=== PATIENT | female | born 1985 | race African-American/Black ===

== ENCOUNTER 2021-05-14 16:30 | Emergency (ER) | payer OTHER, SELFPAY ==
[2021-05-14 16:58] VITALS: BP 102/67; BP 117/79; PULSE 53; PULSE 75; RESP 16; TEMP 36.7; O2SAT 98; O2SAT 99; BMI 40.2
--- NOTE | 2021-05-14 17:02 | ED.WOUNDLAC ---
HPI - Wound/Laceration General Chief Complaint: Skin/Abscess/Foreign Body Stated Complaint: r arm infection Time Seen by Provider: 05/14/21 16:52 Source: patient and EMS Mode of arrival: EMS Limitations: no limitations History of Present Illness HPI narrative: 35-year-old female with history of IVDA presenting to the ER with painful abscess on her right forearm for the last 1 week She reports the last time she injected drugs was 2 weeks ago. She has been on methadone has been injecting cocaine. She reports 1 week ago she started to getting to red tender bumps on her right forearm that has been getting worse over the last 7 days. She tried to drain the pus at home it was too painful. She denies any fever chills. No nausea or vomiting. She has a history of multiple abscesses requiring incision and drainage, and she was voiding coming to the hospital because she was afraid. Onset (ago): week(s) (1) Extremity Location: right: forearm Place: home Patient tetanus UTD: Yes Context: accidental Associated symptoms: pain Related Data Home Medications Medication Instructions Recorded Confirmed hydroxyzine HCl 25 mg tablet 25 mg PO BEDTIME 06/13/20 10/10/20 lisinopril 20 mg tablet 20 mg PO DAILY 06/13/20 10/10/20 vitamin B complex 1 cap PO DAILY 06/13/20 10/10/20 Previous Rx's Medication Instructions Recorded escitalopram oxalate 20 mg tablet 20 mg PO DAILY #90 tab 09/07/20 quetiapine 100 mg tablet 100 mg PO BEDTIME #90 tab 09/27/20 amoxicillin 875 mg-potassium 1 tab PO BID 10 Days #20 tab 10/10/20 clavulanate 125 mg tablet (Augmentin) gabapentin 600 mg tablet 600 mg PO BID #120 tab 02/22/21 trazodone 100 mg tablet 100 mg PO BEDTIME PRN 90 Days #90 02/22/21 tab cyanocobalamin (vitamin B-12) 1,000 mcg PO DAILY 90 Days #90 cap 04/17/21 1,000 mcg capsule levothyroxine 25 mcg tablet 25 mcg PO DAILY 90 Days #90 tab 04/17/21 omeprazole 20 mg capsule,delayed 20 mg PO DAILY 90 Days #90 cap 04/17/21 release cephalexin 500 mg capsule 500 mg PO Q6H #28 cap 05/14/21 doxycycline monohydrate 100 mg 100 mg PO BID #14 cap 05/14/21 capsule Allergies Allergy/AdvReac Type Severity Reaction Status Date / Time ibuprofen [Advil] AdvReac Unknown rash Verified 06/11/20 10:13 Review of Systems Review of Systems: Constitutional: No Fever, No Chills Cardiovascular: No Chest Pain, No SOB Gastrointestinal: No Nausea, No Vomiting, No Diarrhea, No abdominal Pain Musculoskeletal: No joint pain, No Myalgias Skin: + Skin Lesions, No rash Neuro: No Weakness, No Numbness, No Dizziness, No Headache Psych: + Anxiety/Panic, No Depression Heme/Lymph: No Bruising, No Lymphadenopathy PMFSH Past Medical History Medical History Anxiety Facial abscess Hypertension Hypothyroidism Right facial swelling Surgical History History of section History of cholecystectomy History of toe surgery History of tubal ligation Family History Family History Father Depression Mother Asthma Family/Other FH: mental illness Brother Alive and well Social History Social History Alcohol intake: never Advance Directives: No Advance Directives Information Provided: No Patient : No Physical Exam Vital Signs: Vital Signs: Last Vital Signs Temp 98.0 F 05/14/21 16:58 Pulse 53 05/14/21 16:58 Resp 16 05/14/21 16:58 BP 117/79 05/14/21 16:58 Pulse Ox 98 05/14/21 16:58 Body Mass Index 40.2 Appearance: Alert. Oriented X3. No acute distress. HEENT: normal inspection CVS: Normal heart rate and rhythm. Pulses normal. Respiratory: No respiratory distress. Skin: Skin warm and dry. Normal skin color. Normal skin turgor. No rashes. Extremities: Right dorsal forearm with moderate size lesion with central fluctuance, erythema, warmth and induration. Slightly proximal to this there is a healing abscess with crusting. Lesion is flat. Nonfluctuant. Multiple old track gonsalez seen on the bilateral forearms. Bilateral forearm compartments are soft compressible. 2+ radial pulses bilaterally neurovascularly intact distally. Neuro: Oriented X 3. No motor deficit. No sensory deficit. Course Course Course Narrative: 35-year-old female with history of IVDA presenting to the ER with painful abscess on her right forearm for the last 1 week she is nontoxic appearing and afebrile on arrival. Exam is consistent with a abscess associated with IVDA with surrounding cellulitis. Area amenable to I&D, patient is agreeable. Reevaluation(s) Reevaluation #1: Patient tolerated incision and drainage well. No packing needed. Will start patient on doxycycline and Keflex for broad coverage. Area was marked with a pen. She was advised to take with her antibiotics to completion and if the surrounding erythema extends beyond the marked line she was advised to come back to the ER for further evaluation. She declined any need for detox or seeing a substance abuse counselor at this time. Stable for discharge home. Procedures Abscess I/D Site: upper extremity Side (if applicable): right Amount of anesthesia used (mL): 4 Technique: incised with blade Sent for culture/gram staining?: No Irrigation: Yes Packing used?: none Complications: pain and bleeding Critical Care Time Critical Care Time Critical Care Time: No Discharge Plan Discharge Clinical Impression: Abscess of skin or subcutaneous tissue Qualifiers: Site of cutaneous abscess: extremity Site of cutaneous abscess of extremity: upper extremity Laterality: right Qualified Code(s): L02.413 - Cutaneous abscess of right upper limb Cellulitis Qualifiers: Site of cellulitis: extremity Site of cellulitis of extremity: upper extremity Laterality: right Qualified Code(s): L03.113 - Cellulitis of right upper limb Patient Disposition: Home, Self-Care Instructions: Cellulitis (ED), Abscess Incision and Drainage (DC), Warm Compress or Soak (ED) Additional Instructions: Take the prescribed antibiotics as directed - complete the entire course. Use warm compresses to the area several times per day If you develop fevers or signs and symptoms of worsening infection (reddened area extends beyond the marked area) come back to the ER sooner than the 2 days. Do not inject drugs, this can lead to abscesses, infection in the blood stream and . Prescriptions: New doxycycline monohydrate 100 mg capsule 100 mg PO BID Qty: 14 RF: 0 cephalexin 500 mg capsule 500 mg PO Q6H Qty: 28 RF: 0 No Action escitalopram oxalate 20 mg tablet 20 mg PO DAILY Qty: 90 RF: 1 quetiapine 100 mg tablet 100 mg PO BEDTIME Qty: 90 RF: 3 gabapentin 600 mg tablet 600 mg PO BID Qty: 120 RF: 1 trazodone 100 mg tablet 100 mg PO BEDTIME PRN (Reason: sleep) 90 Days Qty: 90 RF: 3 cyanocobalamin (vitamin B-12) 1,000 mcg capsule 1,000 mcg PO DAILY 90 Days Qty: 90 RF: 2 omeprazole 20 mg capsule,delayed release(DR/EC) 20 mg PO DAILY 90 Days Qty: 90 RF: 1 levothyroxine 25 mcg tablet 25 mcg PO DAILY 90 Days Qty: 90 RF: 0 vitamin B complex Capsule 1 cap PO DAILY RF: 0 lisinopril 20 mg tablet 20 mg PO DAILY RF: 0 hydroxyzine HCl 25 mg tablet 25 mg PO BEDTIME RF: 0 amoxicillin-pot clavulanate [Augmentin] 875-125 mg tablet 1 tab PO BID 10 Days Qty: 20 RF: 0
[2021-05-14] MEDS: cephALEXin 500 MG CAPSULE PO (17:17)
[2021-05-14] MEDS: Lidocaine HCl 2 % MPF 5 ML VIAL INFILTRATI (17:17)
== END 2021-05-14 18:22 | disposition home or self-care (01) ==
PROVIDERS: Emergency Provider Emergency Medicine; PCP Internal Medicine
DX: L02.413 Cutaneous abscess of right upper limb (principal); L03.113 Cellulitis of right upper limb; F14.10 Cocaine abuse, uncomplicated; I10 Essential (primary) hypertension
CPT/HCPCS: 10060; 99284

== ENCOUNTER 2022-01-28 01:03 | Emergency (ER) | payer OTHER, SELFPAY ==
[2022-01-28 01:13] VITALS: PULSE 68; PULSE 75; RESP 14; TEMP 36.8; O2SAT 98; BMI 36.6
== END 2022-01-28 02:54 | disposition left against medical advice (07) ==
PROVIDERS: Emergency Provider Emergency Medicine
DX: M25.531 Pain in right wrist (principal)
CPT/HCPCS: 99281

== ENCOUNTER 2023-01-09 20:19 | Inpatient (IN) | payer OTHER, SELFPAY ==
--- NOTE | 2023-01-09 | ECG_ITS ---
Test Reason : MEDICAL CLEARANCE Blood Pressure : / mmHG Vent. Rate : 061 BPM Atrial Rate : 061 BPM P-R Int : 136 ms QRS Dur : 084 ms QT Int : 434 ms P-R-T Axes : 062 005 022 degrees QTc Int : 436 ms Normal sinus rhythm Normal ECG No previous ECGs available Referred By: Tahira Crum Electronically Signed By:GABRIELLA DELATORRE MD
--- NOTE | ~2023-01-09 | XR_ITS ---
EXAMINATION: KUB and pelvis. CLINICAL INDICATION: Assess for any contra band in the rectum or GI tract. COMPARISON: CT abdomen pelvis 03/24/2009. ABDOMEN: There is recently ingested food material in a partially distended stomach. There is gas and stool in the colon. The gallbladder has been surgically removed. There is a calcified lesion left upper quadrant overlying the spleen measuring 2.8 x 3.0 cm, question calcified splenic cyst. It is new since previous CT abdomen and pelvis 11/02/2008. No radiopaque foreign body seen. Pelvis: There is moderate stool in the rectum. No radiopaque foreign body seen in the pelvis. No gross bony abnormality. XR/XR pelvis 1-2V IMPRESSION: No radiopaque foreign body or unusual structure seen in the abdomen or pelvis. There is a calcified cysts of the spleen. A noncalcified 3.1 cm cyst of the spleen was seen on the previous CT abdomen and pelvis exam 03/24/2009 in same location.
--- NOTE | ~2023-01-09 | XR_ITS ---
EXAMINATION: KUB and pelvis. CLINICAL INDICATION: Assess for any contra band in the rectum or GI tract. COMPARISON: CT abdomen pelvis 03/24/2009. ABDOMEN: There is recently ingested food material in a partially distended stomach. There is gas and stool in the colon. The gallbladder has been surgically removed. There is a calcified lesion left upper quadrant overlying the spleen measuring 2.8 x 3.0 cm, question calcified splenic cyst. It is new since previous CT abdomen and pelvis 11/02/2008. No radiopaque foreign body seen. Pelvis: There is moderate stool in the rectum. No radiopaque foreign body seen in the pelvis. No gross bony abnormality. XR/XR abdomen min 2V IMPRESSION: No radiopaque foreign body or unusual structure seen in the abdomen or pelvis. There is a calcified cysts of the spleen. A noncalcified 3.1 cm cyst of the spleen was seen on the previous CT abdomen and pelvis exam 03/24/2009 in same location.
--- NOTE | ~2023-01-09 | XR_ITS ---
EXAMINATION: XR PELVIS CLINICAL INFORMATION: Contours and COMPARISON: Previous x-ray 01/10/2023 TECHNIQUE: AP view of the pelvis. FINDINGS: No foreign body seen. Stool in the colon. Normal bony structures. Normal soft tissues. XR/XR pelvis 1-2V IMPRESSION: No foreign body seen.
[2023-01-09 20:23] VITALS: BP 124/78; PULSE 85; RESP 18; TEMP 36.6; O2SAT 99; BMI 29.6
--- NOTE | 2023-01-09 20:23 | ED_ITS ---
HPI - Psych General Chief Complaint: Psychiatric Symptoms Stated Complaint: Depression/SI Time Seen by Provider: 01/09/23 22:02 Source: patient and RN notes reviewed Mode of arrival: ambulatory Limitations: no limitations History of Present Illness HPI Narrative: This is a 37-year-old female, with a past medical history of hypothyroidism, and hypertension, presenting to the emergency department for evaluation of suicidal ideation with attempted suicide attempt today. Patient reports that she had thoughts of cutting herself with a box truck owner operator which was taken away from her by a family member. Patient has a history of suicidal ideations. Denies any homicidal ideations. She states that she otherwise feels well, she admits to having some dysuria for ?awhile? she is unable to report how long this has been going on for. She denies any hematuria, urinary frequency or urgency. Denies fevers, chills, chest pain, shortness of breath, palpitations, abdominal pain, or nausea. She is sexually active with her partner, unsure if she has any concerns for sexually transmitted infection. She denies any vaginal discharge or bleeding. She states that she uses cocaine, denies any other drug use. She reports that she does not drink alcohol. No other complaints or concerns at this time. MD complaint: suicidal ideation History of same: Yes Context: recent drug abuse Associated psychiatric symptoms: depression and suicidal ideation Associated symptoms: denies other symptoms Treatments prior to arrival: none If self harm: admits thoughts of self harm and has plan Related Data Home Medications Medication Instructions Recorded Confirmed No Known Home Meds 01/09/23 01/09/23 Allergies Allergy/AdvReac Type Severity Reaction Status Date / Time ibuprofen [Advil] AdvReac Unknown rash Verified 06/11/20 10:13 Review of Systems Review of Systems: Constitutional: No Weight loss, No Fever, No Chills, No Night Sweats, No Fatigue, No Malaise ENT/Mouth: No Hearing loss, No Ear Pain, No Nasal Congestion, No Sinus Pain, No Hoarseness, No sore throat, No Rhinorrhea, No Swallowing Difficulty Eyes: No Eye Pain, No Swelling, No Redness, No Foreign Body, No Discharge, No Vision Changes Cardiovascular: No Chest Pain, No SOB, No Dyspnea on Exertion, No Orthopnea, No Edema, No Palpitations Respiratory: No Cough, No Sputum, No Wheezing, No Smoke Exposure, No Dyspnea Gastrointestinal: No Nausea, No Vomiting, No Diarrhea, No Constipation, No Abdominal pain, No Hematochezia, No Melena Genitourinary: No irregular bleeding, No Dysuria, No Urinary Frequency, No H ematuria, No Urinary Incontinence/retention, No Urgency, No Flank Pain, No Urinary Flow Changes, No Hesitancy Musculoskeletal: No joint pain, No Myalgias, No Joint Swelling Skin: No Skin Lesions, No rash Neuro: No Weakness, No Numbness, No Paresthesias, No Loss of Consciousness, No Dizziness, No Headache Psych: No Anxiety/Panic, + Depression, +SI, No SI/AH/VH, No Social Issues, Heme/Lymph: No Bruising, No Bleeding,No Lymphadenopathy Endocrine: No Polyuria, No Polydipsia, No Temperature Intolerance Yes all other systems are reviewed and are negative Constitutional: Constitutional: Reports as per HPI [facility] Past Medical History Medical History Anxiety Facial abscess Hypertension Hypothyroidism Right facial swelling Surgical History History of section History of cholecystectomy History of toe surgery History of tubal ligation Family History Family History Father Depression Mother Asthma Family/Other FH: mental illness Brother Alive and well Social History Social History Alcohol intake: never Advance Directives: No Advance Directives Information Provided: No Healthcare Proxy: No Guardian: No Physical Exam Vital Signs: Vital Signs: Last Vital Signs Temp 98.3 F 01/10/23 06:18 Pulse 64 01/10/23 06:18 Resp 16 01/10/23 06:18 BP 90/66 01/10/23 06:18 Pulse Ox 99 01/10/23 06:18 O2 Del Method Room Air 01/10/23 06:18 BMI result Body Mass Index 29.6 Const: General: cooperative, comfortable and no acute distress Orientation/consciousness: patient oriented x3 Limitations: no limitations HEENT: Head: Yes normal to inspection, Yes normocephalic and Yes atraumatic Ears: hearing grossly normal bilaterally General nose exam: Normal external nose present Face and sinus: Yes normal facial exam Mouth: Normal oral and palatal mucosa present, oropharynx normal and moist mucous membranes Teeth and gingiva: poor dentition Throat: Yes posterior oropharynx normal Eyes: General: appearance normal, both eyes and all related structures Eyelids: Yes eyelids normal Conjunctivae: conjunctivae normal Sclerae: sclerae normal Pupils: Equal, round and reactive pupils present EOM: EOMs intact bilaterally Neck: Neck: Yes normal visual inspection, Yes full ROM and Yes no lymphadenopathy Lymphatic: no lymphadenopathy noted Chest: Chest palpation & inspection: normal inspection of the chest Resp: Effort & Inspection: normal respiratory effort and able to speak in complete sentences Auscultation: clear to auscultation bilaterally, no crackles, no rales, no rhonchi and no wheezes Cardio: Rate: regular rate Rhythm: regular rhythm Heart sounds: S1 normal heart sound present and S2 normal heart sound present GI: Other: Abdomen is soft, nontender, nondistended Inspection: Yes normal to inspection : General: Yes no CVA tenderness Back/Spine/Pelvis: Back: no CVA tenderness Skin: General skin exam: no rashes or lesions noted Trauma: no lacerations or abrasions Wounds: no wounds Neuro: General: patient oriented x3 and moves all extremities Cranial nerves: Yes Equal, round and reactive pupils present Extrem: General: Yes normal to inspection Right upper extremity: normal to inspection Left upper extremity: normal to inspection Right lower ex tremity: normal to inspection Left lower extremity: normal to inspection Psych: Appearance: grossly normal Mental Status: mental status grossly normal Speech and movement: Clear speech present Affect: Labile affect present and Sad affect present Attitude: cooperative Thought process: Normal thought process present Thought content: Suicidality present Insight: Limited insight present (Psych) Judgement: Limited judgement present (Psych) Course Course Course Narrative: This is a rapid medical exam. Deferred additional HPI, ROS, PE to primary provider. 37 yo female with history of anxiety, depression, adhd, ocd, hypothyroidism here with complaints of increasing depression, suicidal thoughts with plan to cut herself. Her boyfriend took the knife away before she was able to harm herself. No physical complaints. Per patients lots of stressors. No current therapist, psychiatrist. Not currently on psychiatric medications. Smokes cocaine daily. No additional substance use. Will obtain labs, [place]ED[place]. Spoke to charge nurse and patient will go to behavioral pod directly. Reevaluation(s) Reevaluation #1: Patient admits to having some dysuria, urine collected today shows leuk esterases with positive nitrates, will treat as a urinary tract infection with 7 day course of Ceftin. Patient has no CVA tenderness, the leukocytosis. Also collected gonorrhea and chlamydia urine. Urine drug screen positive for cocaine and fentanyl. All other labs within normal limits. TSH obtained given history of hypothyroidism, within normal limits today. Patient is staying overnight, will be bed search. Patient having some dental pain, no obvious dental abscess, requesting Anbesol. Pt placed in physician observation. Time: 23:07 Reevaluation #2: No event reported over night. Remain on section 12. Still suicidal. Conitnue bed search. Time: 08:16 Medications Administered Generic Name Dose Route Start Last Admin Trade Name Freq PRN Reason Stop Dose Admin Cefuroxime Axetil 250 mg 01/09/23 23:00 01/09/23 23:11 Cefuroxime Axetil 250 Mg Tablet PO 01/15/23 23:00 250 mg BID GIBSON Administration Discontinued Medications Generic Name Dose Route Start Last Admin Trade Name Freq PRN Reason Stop Dose Admin Acetaminophen 975 mg 01/09/23 23:05 01/09/23 23:11 Acetaminophen 325 Mg Tablet PO 01/09/23 23:06 975 mg ONCE ONE Administration Medical Decision Making Medical Decision Making [facility] Narrative: 37-year-old female, with a past history of hypothyroidism and hypertension, presenting to emergency department for evaluation suicidal ideation with attempted suicide attempt. Patient reports that she attempted to cut her wrist using a box truck owner operator but this was taken from her by another family member. Patient is tearful on exam, vital signs within normal limits. Plan: Labs, UA, care team consult Differential Diagnosis Differential Diagnoses: The differential diagnosis associated with the presentation includes Admission/Observation Consideration of admission/observation: Escalation of care including admission/observation considered Lab Data [facility] Lab Attestation statement: I reviewed the patient's lab results. 01/09/23 21:16 01/09/23 21:17 Labs: Lab Results 01/09/23 01/09/23 01/09/23 Range/Units 21:16 21:17 21:17 WBC 8.8 (4.8-10.8) X10*3/uL RBC 4.67 (4.20-5.50) X10*6/uL Hgb 13.7 (12.0-16.0) g/dl Hct 41.3 (37.0-47.0) % MCV 88.4 (80.0-98.0) fL MCH 29.3 (27.0-33.0) pg MCHC 33.2 (31.0-35.0) g/dl RDW 13.0 (11.0-16.0) % Plt Count 212 (160-400) X10*3/uL MPV 8.7 L (9.4-12.3) fL Immature Gran % (Auto) 0.5 H (0.0-0.4) % Neut % (Auto) 56.1 (45-73) % Lymph % (Auto) 35.8 (20-40) % [place] % (Auto) 6.7 (2-11) % Eos % (Auto) 0.7 (0-4) % Baso % (Auto) 0.2 (0-2) % Lymph # (Auto) 3.2 (1.2-4.9) X10*3/uL [place] # (Auto) 0.6 (0.1-1.2) X10*3/uL Eos # (Auto) 0.1 (0.0-0.4) X10*3/uL Baso # (Auto) 0.0 (0.0-0.2) X10*3/uL Abs Immat Gran (auto) 0.04 H (0.00-0.03) X10*3/uL Absolute Neuts (auto) 4.9 (2.0-8.3) x10*3/uL Absolute Nucleated RBC 0.000 (0.0-0.012) X10*3/uL Nucleated RBC % (auto) 0.0 (0.0-0.2) /100WBC Sodium 139 (135-145) mmol/L Potassium 3.6 (3.3-5.1) mmol/L Chloride 105 (96-108) mmol/L Carbon Dioxide 26 (22-29) mmol/L Anion Gap 12 (12-20) BUN 15 (9-16) mg/dL Creatinine 0.86 (0.5-1.4) mg/dL Estim Creat Clear Calc 84.0 Estimated GFR > 60 Random Glucose 74 (60-115) mg/dL Calcium 9.6 (8.4-10.2) mg/dL Total Bilirubin 0.6 (0.0-1.0) mg/dL Direct Bilirubin 0.1 (0.0-0.5) mg/dL AST 59 H (5-31) U/L ALT 72 H (0-31) U/L Alkaline Phosphatase 67 (39-117) U/L Total Protein 8.7 H (6.5-8.0) g/dL Albumin 3.9 (3.5-5.0) g/dL TSH 1.08 (0.32-4.0) uIU/mL Urine Color Urine Appearance Urine pH (5.0-9.0) Ur Specific [place] (1.005-1.025) Urine Protein (Neg-Trace) mg/dL Urine Glucose (UA) (Negative) mg/dL Urine Ketones (Negative) mg/dL Urine Blood (Negative) Urine Nitrite (Negative) Ur Leukocyte Esterase (Negative) Urine RBC (0-2) /HPF Urine WBC (0-5) /HPF Ur Squamous Epith Cells (0-2) /HPF Urine Bacteria (None Seen) Hyaline Casts (0-2) /LPF Urine Test (NEGATIVE) Urine Opiates Screen (Not Detect) Urine Fentanyl Screen (Not Detect) Ur Barbiturates Screen (Not Detect) Ur Phencyclidine Scrn (Not Detect) Ur Amphetamines Screen (Not Detect) U Benzodiazepines Scrn (Not Detect) Urine Cocaine Screen (Not Detect) U Marijuana (THC) Screen (Not Detect) Ethyl Alcohol < 10 mg/dL Chlam trachomat DNA PCR (Not Detect.) COVID-19 (ERIKA) (Negative) COVID-19 Clin Com N.gonorrhoeae DNA (PCR) (Not Detect.) 01/09/23 01/09/23 01/09/23 Range/Units 21:17 21:18 21:18 WBC (4.8-10.8) X10*3/uL RBC (4.20-5.50) X10*6/uL Hgb (12.0-16.0) g/dl Hct (37.0-47.0) % MCV (80.0-98.0) fL MCH (27.0-33.0) pg MCHC (31.0-35.0) g/dl RDW (11.0-16.0) % Plt Count (160-400) X10*3/uL MPV (9.4-12.3) fL Immature Gran % (Auto) (0.0-0.4) % Neut % (Auto) (45-73) % Lymph % (Auto) (20-40) % [place] % (Auto) (2-11) % Eos % (Auto) (0-4) % Baso % (Auto) (0-2) % Lymph # (Auto) (1.2-4.9) X10*3/uL [place] # (Auto) (0.1-1.2) X10*3/uL Eos # (Auto) (0.0-0.4) X10*3/uL Baso # (Auto) (0.0-0.2) X10*3/uL Abs Immat Gran (auto) (0.00-0.03) X10*3/uL Absolute Neuts (auto) (2.0-8.3) x10*3/uL Absolute Nucleated RBC (0.0-0.012) X10*3/uL Nucleated RBC % (auto) (0.0-0.2) /100WBC Sodium (135-145) mmol/L Potassium (3.3-5.1) mmol/L Chloride (96-108) mmol/L Carbon Dioxide (22-29) mmol/L Anion Gap (12-20) BUN (9-16) mg/dL Creatinine (0.5-1.4) mg/dL Estim Creat Clear Calc Estimated GFR Random Glucose (60-115) mg/dL Calcium (8.4-10.2) mg/dL Total Bilirubin (0.0-1.0) mg/dL Direct Bilirubin (0.0-0.5) mg/dL AST (5-31) U/L ALT (0-31) U/L Alkaline Phosphatase (39-117) U/L Total Protein (6.5-8.0) g/dL Albumin (3.5-5.0) g/dL TSH (0.32-4.0) uIU/mL Urine Color Dark Yellow Urine Appearance Clear Urine pH 5.5 (5.0-9.0) Ur Specific [place] >= 1.030 H (1.005-1.025) Urine Protein Trace (Neg-Trace) mg/dL Urine Glucose (UA) Negative (Negative) mg/dL Urine Ketones Trace (Negative) mg/dL Urine Blood Negative (Negative) Urine Nitrite Positive H (Negative) Ur Leukocyte Esterase Moderate (2+) H (Negative) Urine RBC 0-2 (0-2) /HPF Urine WBC 21-50 H (0-5) /HPF Ur Squamous Epith Cells 3-5 (0-2) /HPF Urine Bacteria 4+ (None Seen) Hyaline Casts 0-2 (0-2) /LPF Urine Test NEGATIVE (NEGATIVE) Urine Opiates Screen Not Detected (Not Detect) Urine Fentanyl Screen POSITIVE H (Not Detect) Ur Barbiturates Screen Not Detected (Not Detect) Ur Phencyclidine Scrn Not Detected (Not Detect) Ur Amphetamines Screen Not Detected (Not Detect) U Benzodiazepines Scrn Not Detected (Not Detect) Urine Cocaine Screen POSITIVE H (Not Detect) U Marijuana (THC) Screen Not Detected (Not Detect) Ethyl Alcohol mg/dL Chlam trachomat DNA PCR (Not Detect.) COVID-19 (ERIKA) (Negative) COVID-19 Clin Com N.gonorrhoeae DNA (PCR) (Not Detect.) 01/09/23 01/09/23 Range/Units 23:24 23:28 WBC (4.8-10.8) X10*3/uL RBC (4.20-5.50) X10*6/uL Hgb (12.0-16.0) g/dl Hct (37.0-47.0) % MCV (80.0-98.0) fL MCH (27.0-33.0) pg MCHC (31.0-35.0) g/dl RDW (11.0-16.0) % Plt Count (160-400) X10*3/uL MPV (9.4-12.3) fL Immature Gran % (Auto) (0.0-0.4) % Neut % (Auto) (45-73) % Lymph % (Auto) (20-40) % [place] % (Auto) (2-11) % Eos % (Auto) (0-4) % Baso % (Auto) (0-2) % Lymph # (Auto) (1.2-4.9) X10*3/uL [place] # (Auto) (0.1-1.2) X10*3/uL Eos # (Auto) (0.0-0.4) X10*3/uL Baso # (Auto) (0.0-0.2) X10*3/uL Abs Immat Gran (auto) (0.00-0.03) X10*3/uL Absolute Neuts (auto) (2.0-8.3) x10*3/uL Absolute Nucleated RBC (0.0-0.012) X10*3/uL Nucleated RBC % (auto) (0.0-0.2) /100WBC Sodium (135-145) mmol/L Potassium (3.3-5.1) mmol/L Chloride (96-108) mmol/L Carbon Dioxide (22-29) mmol/L Anion Gap (12-20) BUN (9-16) mg/dL Creatinine (0.5-1.4) mg/dL Estim Creat Clear Calc Estimated GFR Random Glucose (60-115) mg/dL Calcium (8.4-10.2) mg/dL Total Bilirubin (0.0-1.0) mg/dL Direct Bilirubin (0.0-0.5) mg/dL AST (5-31) U/L ALT (0-31) U/L Alkaline Phosphatase (39-117) U/L Total Protein (6.5-8.0) g/dL Albumin (3.5-5.0) g/dL TSH (0.32-4.0) uIU/mL Urine Color Urine Appearance Urine pH (5.0-9.0) Ur Specific [place] (1.005-1.025) Urine Protein (Neg-Trace) mg/dL Urine Glucose (UA) (Negative) mg/dL Urine Ketones (Negative) mg/dL Urine Blood (Negative) Urine Nitrite (Negative) Ur Leukocyte Esterase (Negative) Urine RBC (0-2) /HPF Urine WBC (0-5) /HPF Ur Squamous Epith Cells (0-2) /HPF Urine Bacteria (None Seen) Hyaline Casts (0-2) /LPF Urine Test (NEGATIVE) Urine Opiates Screen (Not Detect) Urine Fentanyl Screen (Not Detect) Ur Barbiturates Screen (Not Detect) Ur Phencyclidine Scrn (Not Detect) Ur Amphetamines Screen (Not Detect) U Benzodiazepines Scrn (Not Detect) Urine Cocaine Screen (Not Detect) U Marijuana (THC) Screen (Not Detect) Ethyl Alcohol mg/dL Chlam trachomat DNA PCR DETECTED A (Not Detect.) COVID-19 (ERIKA) Negative (Negative) COVID-19 Clin Com See Note N.gonorrhoeae DNA (PCR) NOT DETECTED (Not Detect.) Radiology Impression Discussion of test interpretation with radiology: I have reviewed the radiologist's reading. External Record Review External record reviewed: Inpatient record, Office record, Outpatient record, Prior outpatient labs, Prior outpatient radiology, Primary care record and [facility] record Discharge Plan Discharge Clinical Impression: Depression, Suicidal ideation, Urinary tract infection Patient Disposition: Still a Patient Prescriptions: No Action No Known Home Meds Interventions: Kleberg-Suicide Risk Severity Scale Last Done: 01/10/23 03:26
[2023-01-09 21:28] LABS: MANUAL DIFF FLAG NO
[2023-01-09 21:30] LABS: Basophils Percent Auto 0.2 % (0-2); Eosinophils Absolute Auto 0.1 X10*3/uL (0.0-0.4); Eosinophils Percent Auto 0.7 % (0-4); Hematocrit 41.3 % (37.0-47.0); Hemoglobin 13.7 g/dl (12.0-16.0); Imm Gran Abs Auto 0.04 X10*3/uL (0.00-0.03); Imm Gran Pct Auto 0.5 % (0.0-0.4); Lymphocytes Absolute Auto 3.2 X10*3/uL (1.2-4.9); Lymphocytes Percent Auto 35.8 % (20-40); Mean Corpuscular HGB Conc 33.2 g/dl (31.0-35.0); Mean Corpuscular Hemoglobin 29.3 pg (27.0-33.0); Mean Corpuscular Volume 88.4 fL (80.0-98.0); Mean Platelet Volume 8.7 fL (9.4-12.3); Monocytes Absolute Auto 0.6 X10*3/uL (0.1-1.2); Monocytes Percent Auto 6.7 % (2-11); Neutrophils Absolute Auto 4.9 x10*3/uL (2.0-8.3); Neutrophils Percent Auto 56.1 % (45-73); Platelet Count 212 X10*3/uL (160-400); Red Blood Count 4.67 X10*6/uL (4.20-5.50); White Blood Count 8.8 X10*3/uL (4.8-10.8)
[2023-01-09 21:42] LABS: Appearance Urine Clear; Color Urine Dark Yellow; Glucose Urine UA Negative (Negative); Leukocyte Esterase Urine Moderate (2+) (Negative); Nitrite Urine Positive (Negative); PH 5.5 (5.0-9.0); Specific Gravity - Urine >= 1.030 (1.005-1.025); UMIC TRIGGER UACC YES; Urine Blood Negative (Negative); Urine Ketones Trace mg/dL (Negative); Urine Protein Trace mg/dL (Neg-Trace)
[2023-01-09 21:44] LABS: Alanine Aminotransferase 72 U/L (0-31); Albumin Level 3.9 g/dL (3.5-5.0); Alkaline Phosphatase 67 U/L (39-117); Anion Gap 12 (12-20); Aspartate Amino Transferase 59 U/L (5-31); Bilirubin Direct 0.1 mg/dL (0.0-0.5); Bilirubin Total 0.6 mg/dL (0.0-1.0); Blood Urea Nitrogen 15 mg/dL (9-16); Calcium 9.6 mg/dL (8.4-10.2); Carbon Dioxide 26 mmol/L (22-29); Chloride 105 mmol/L (96-108); Estimated Glomerular Filt Rate > 60; Glucose Random 74 mg/dL (60-115); Potassium 3.6 mmol/L (3.3-5.1); Sodium 139 mmol/L (135-145); Total Protein 8.7 g/dL (6.5-8.0)
[2023-01-09 21:48] LABS: Ethanol < 10 mg/dL
[2023-01-09 21:49] LABS: Bacteria Urine 4+ (None Seen); Hyaline Casts Urine 0-2 /LPF (0-2); RBC Urine 0-2 /HPF (0-2); UACC Culture Trigger YES; WBC Urine 21-50 /HPF (0-5)
[2023-01-09 21:50] LABS: UPreg QC Valid YES; Urine Pregnancy NEGATIVE (NEGATIVE)
[2023-01-09 22:03] LABS: Amphetamine Screen Urine Not Detected (Not Detect); Barbiturates, Urine Not Detected (Not Detect); Benzodiazepines Screen Urine Not Detected (Not Detect); Cannabinoid Screen Urine Not Detected (Not Detect); Cocaine Screen Urine POSITIVE (Not Detect); Fentanyl, urine POSITIVE (Not Detect); Opiate Screen Urine Not Detected (Not Detect); Phencyclidine Screen Urine Not Detected (Not Detect)
[2023-01-09] MEDS: Acetaminophen 325 MG TABLET 975 MG PO (23:11)
--- NOTE | 2023-01-09 23:16 | PC.NURSE ---
Ceftin 250 mg PO for UTI and Tylenol 950 mg PO for toothache administered at 2311, patient compliant, patient was seen by care team, disposition is voluntary inpatient bed search, med rec reviewed/patient off her medication for years, behavior non concerning, VSS, labs completed/resulted, will continue to monitor.
[2023-01-09 23:33] LABS: TSH reflex Free T4 1.08 uIU/mL (0.32-4.0)
[2023-01-09 23:49] LABS: COVID-19 Test Negative (Negative); IDNOW Serial# BCCEAD1C
[2023-01-10 01:04] LABS: CT PCR DETECTED (Not Detect.); NG PCR NOT DETECTED (Not Detect.)
[2023-01-10 06:18] VITALS: BP 90/66; PULSE 64; RESP 16; TEMP 36.8; O2SAT 99
--- NOTE | 2023-01-10 08:06 | PHA.MEDREC ---
Pharmacy Consult ? Medication Reconciliation Pharmacy has completed the medication reconciliation Reviewed med rec done by nursing (Robbie). According to RN, patient has been off meds for years..
--- NOTE | 2023-01-10 09:05 | HE.PHANOTE ---
Methadone Clinic Verification Form : [facility] Vik Mathias . Methadone dose 125 mg . Last dose give 01/09/23 @ 08:00
--- NOTE | 2023-01-10 09:29 | PC.NURSE ---
Methadone verified 125 mg last given 01/09/23. One 125 mg take home bottle given to be taken today. Methadone verified by ESTHER Castellon. Methadone verification form faxed to pharmacy.
[2023-01-10] MEDS: methADONE HCl 20 MG/2 ML ORAL.CONC 125 MG PO (09:32)
--- NOTE | 2023-01-10 10:06 | PC.NURSE ---
Patient endorses suicidal ideation no plan, denies HI. Safety Assessment not done due to patient sleeping. Will follow up when awake. Methadone and antibiotic administered per order. Will continue to observe.
[2023-01-10 14:00] VITALS: BP 123/77; PULSE 80; RESP 16; TEMP 36.3; O2SAT 97
--- NOTE | 2023-01-10 17:02 | PC.ADMIT ---
Pt admitted to [facility]3 at 1300 from [facility] [place] ED pod. Pt was brought to the ED by her boyfriend after she tried to OD on sleeping pills and then tried to cut her wrists with a snuff box finisher. Pt's boyfriend was able to stop her and was able to get the snuff box finisher away from her. Pt has been depressed and not sleeping. Believes that people are after her and that it's because of something her ex-boyfriend did. Reports that her mother about a year ago, and around the same time her children were taken away from her. She was also in detox for heroin use around the same time. Pt reports that her son also has cancer. Upon arrival to the unit, pt was cooperative with changeover operator and skin check. RNs discovered that pt had a concealed crack pipe and statement clerks manager in between her buttocks. Pt cooperative with handing over the contraband, and denied any intent to use it on the unit or that she had used it while she was in the ED. Pt was unable to participate in the assessment process, as she was falling asleep sitting up while in the exam room. Safety tool was not completed. Pt denied HI/AVH, but endorsed SI, and said that she could not carry out her plan here, and it would be with either pills or a snuff box finisher. Pt verbalized that she would seek out staff in the event that she did not feel safe. Pt signed a CV. and placed on 15 minute checks.
--- NOTE | 2023-01-10 19:34 | P.EN_ITS ---
Event Note Date of Service: 01/10/23 Event Note: crack pipe and application trainer found in patients rectum Abdomnial/Pelvic Xrays ordered to assess for anotomically hidden contraban order for removal of all clothing, belongings; room search; keep pt's clothing/belongings and pt to wear hospital gown/johnnies only No visitors until further notice Time Spent With Patient Time: Total time managing care of this patient today ____ minutes.
[2023-01-10] MEDS: hydrOXYzine HCL 25 MG TABLET PO (21:09)
[2023-01-10 21:10] VITALS: BP 117/69; PULSE 68; RESP 16; TEMP 36.5; O2SAT 98
[2023-01-10] MEDS: Acetaminophen 325 MG TABLET 650 MG PO (21:10)
[2023-01-10] MEDS: Benzocaine 20 % Oral Gel 9 GM TUBE 1 APPL MUCOUS MEM (22:12)
--- NOTE | 2023-01-10 23:43 | PC.NURSE ---
MD ordered room search-was conducted at 1999 after shift report was given. patient was notified by t/w and was cooperative to procedure. t/w also identified self as her HRO and gave her time to express self ''I am fine, I'll do whatever you need me to do'' nothing found during search. per MD request belongings placed back in closet. patient changed out of [facility] and given new set and changed with female staff. patient informed that an abdominal xray was also ordered to r/o foreign bodies and also agreed. xray was done on unit with portable. informed that she would not be allowed visitors at this time but that restriction would be evaluated daily.
[2023-01-11 06:00] VITALS: BP 109/68; PULSE 63; RESP 18; TEMP 36.6
[2023-01-11] MEDS: Benzocaine 20 % Oral Gel 9 GM TUBE 1 APPL MUCOUS MEM ×2 (06:16→23:00)
[2023-01-11 07:29] LABS: Alanine Aminotransferase 74 U/L (0-31); Albumin Level 3.3 g/dL (3.5-5.0); Alkaline Phosphatase 78 U/L (39-117); Anion Gap 13 (12-20); Aspartate Amino Transferase 64 U/L (5-31); Bilirubin Total 0.3 mg/dL (0.0-1.0); Blood Urea Nitrogen 18 mg/dL (9-16); Calcium 9.4 mg/dL (8.4-10.2); Carbon Dioxide 22 mmol/L (22-29); Chloride 106 mmol/L (96-108); Cholesterol 164 mg/dL; Creatinine Clr Calc Pharmacy 95.1; Estimated Glomerular Filt Rate > 60; Glucose Fasting 100 mg/dL (60-99); HDL Cholesterol 45 mg/dL; LDL Cholesterol Calculated 86 mg/dl; Potassium 3.6 mmol/L (3.3-5.1); Sodium 137 mmol/L (135-145); Total Protein 7.6 g/dL (6.5-8.0); Triglycerides 166 mg/dL
--- NOTE | 2023-01-11 08:03 | HO.PSYADMNOT ---
[facility] Date of Service: 01/11/23 Chief Complaint: Depression Sources of Information: patient interviewed, chart reviewed and crisis/core team assessment reviewed HPI Subjective Notes: Conditional Voluntary Narrative: Shahana is a 37-year-old , single, unemployed, mother of 4. Two of her children are older and her younger children who are 11 and 14 were taken by [facility] about a year ago after her mother overdosed and passed. She states that after her mother and her 19-year-old son was diagnosed with lymphoma and is starting to get treatment she became more depressed and started having more difficulties in coping. She has not engaged in any kind of treatment nor on any medications for depression. She does have history of heroin use from age [age] and has been on methadone 125 mg daily. No alcohol abuse or dependence but uses crack cocaine, not every day. She was brought to the emergency room after she took 10 100 mg sleeping pills but does not know the name. She also is having plans to cut herself with a air box tester. She denies any previous suicide attempts. She denies any previous hospitalizations. She lives with her 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 is on SSI. Past Psychiatric History: None Medical Evaluation Reviewed: Yes [facility] Medical History Anxiety Facial abscess Hypertension Hypothyroidism Right facial swelling Surgical History History of section History of cholecystectomy History of toe surgery History of tubal ligation Family History: Substance abuse Social History: Shahana is 1 of 6 siblings. Both parents are . She was born and raised in this area. 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 She has had no marriages and 4 children from 2 different man who are involved in their lives. Her younger children were taken away by [facility]. She currently lives with her 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 states that they have a good relationship. Substance History: Heroin dependence from age [age]. Current crack cocaine use Trauma History: No direct history of abuse Diagnostics Vital Signs (24Hr): Vital Signs - 24 hr 01/10/23 14:00 01/10/23 21:10 Temperature 97.4 F 97.7 F Pulse Rate 80 68 Respiratory Rate 16 16 Blood Pressure 123/77 117/69 Pulse Oximetry 97 98 Oxygen Delivery Method Room Air Room Air BMI result Body Mass Index 29.6 Labs 01/09/23 21:16 01/11/23 07:01 Labs: Laboratory Results - last 48 hr 01/09/23 01/09/23 01/09/23 21:16 21:17 21:17 WBC 8.8 RBC 4.67 Hgb 13.7 Hct 41.3 MCV 88.4 MCH 29.3 MCHC 33.2 RDW 13.0 Plt Count 212 MPV 8.7 L Immature Gran % (Auto) 0.5 H Neut % (Auto) 56.1 Lymph % (Auto) 35.8 [place] % (Auto) 6.7 Eos % (Auto) 0.7 Baso % (Auto) 0.2 Lymph # (Auto) 3.2 [place] # (Auto) 0.6 Eos # (Auto) 0.1 Baso # (Auto) 0.0 Abs Immat Gran (auto) 0.04 H Absolute Neuts (auto) 4.9 Absolute Nucleated RBC 0.000 Nucleated RBC % (auto) 0.0 Sodium 139 Potassium 3.6 Chloride 105 Carbon Dioxide 26 Anion Gap 12 BUN 15 Creatinine 0.86 Estim Creat Clear Calc 84.0 Estimated GFR > 60 Random Glucose 74 Fasting Glucose Calcium 9.6 Total Bilirubin 0.6 Direct Bilirubin 0.1 AST 59 H ALT 72 H Alkaline Phosphatase 67 Total Protein 8.7 H Albumin 3.9 Triglycerides Cholesterol LDL Cholesterol, Calc HDL Cholesterol TSH 1.08 Urine Color Urine Appearance Urine pH Ur Specific [place] Urine Protein Urine Glucose (UA) Urine Ketones Urine Blood Urine Nitrite Ur Leukocyte Esterase Urine RBC Urine WBC Ur Squamous Epith Cells Urine Bacteria Hyaline Casts Urine Test Urine Opiates Screen Urine Fentanyl Screen Ur Barbiturates Screen Ur Phencyclidine Scrn Ur Amphetamines Screen U Benzodiazepines Scrn Urine Cocaine Screen U Marijuana (THC) Screen Ethyl Alcohol < 10 Chlam trachomat DNA PCR COVID-19 (ERIKA) COVID-19 Clin Com N.gonorrhoeae DNA (PCR) 01/09/23 01/09/23 01/09/23 21:17 21:18 21:18 WBC RBC Hgb Hct MCV MCH MCHC RDW Plt Count MPV Immature Gran % (Auto) Neut % (Auto) Lymph % (Auto) [place] % (Auto) Eos % (Auto) Baso % (Auto) Lymph # (Auto) [place] # (Auto) Eos # (Auto) Baso # (Auto) Abs Immat Gran (auto) Absolute Neuts (auto) Absolute Nucleated RBC Nucleated RBC % (auto) Sodium Potassium Chloride Carbon Dioxide Anion Gap BUN Creatinine Estim Creat Clear Calc Estimated GFR Random Glucose Fasting Glucose Calcium Total Bilirubin Direct Bilirubin AST ALT Alkaline Phosphatase Total Protein Albumin Triglycerides Cholesterol LDL Cholesterol, Calc HDL Cholesterol TSH Urine Color Dark Yellow Urine Appearance Clear Urine pH 5.5 Ur Specific [place] >= 1.030 H Urine Protein Trace Urine Glucose (UA) Negative Urine Ketones Trace Urine Blood Negative Urine Nitrite Positive H Ur Leukocyte Esterase Moderate (2+) H Urine RBC 0-2 Urine WBC 21-50 H Ur Squamous Epith Cells 3-5 Urine Bacteria 4+ Hyaline Casts 0-2 Urine Test NEGATIVE Urine Opiates Screen Not Detected Urine Fentanyl Screen POSITIVE H Ur Barbiturates Screen Not Detected Ur Phencyclidine Scrn Not Detected Ur Amphetamines Screen Not Detected U Benzodiazepines Scrn Not Detected Urine Cocaine Screen POSITIVE H U Marijuana (THC) Screen Not Detected Ethyl Alcohol Chlam trachomat DNA PCR COVID-19 (ERIKA) COVID-19 Clin Com N.gonorrhoeae DNA (PCR) 01/09/23 01/09/23 01/11/23 23:24 23:28 07:01 WBC RBC Hgb Hct MCV MCH MCHC RDW Plt Count MPV Immature Gran % (Auto) Neut % (Auto) Lymph % (Auto) [place] % (Auto) Eos % (Auto) Baso % (Auto) Lymph # (Auto) [place] # (Auto) Eos # (Auto) Baso # (Auto) Abs Immat Gran (auto) Absolute Neuts (auto) Absolute Nucleated RBC Nucleated RBC % (auto) Sodium 137 Potassium 3.6 Chloride 106 Carbon Dioxide 22 Anion Gap 13 BUN 18 H Creatinine 0.76 Estim Creat Clear Calc 95.1 Estimated GFR > 60 Random Glucose Fasting Glucose 100 H Calcium 9.4 Total Bilirubin 0.3 Direct Bilirubin AST 64 H ALT 74 H Alkaline Phosphatase 78 Total Protein 7.6 Albumin 3.3 L Triglycerides 166 Cholesterol 164 LDL Cholesterol, Calc 86 HDL Cholesterol 45 TSH Urine Color Urine Appearance Urine pH Ur Specific [place] Urine Protein Urine Glucose (UA) Urine Ketones Urine Blood Urine Nitrite Ur Leukocyte Esterase Urine RBC Urine WBC Ur Squamous Epith Cells Urine Bacteria Hyaline Casts Urine Test Urine Opiates Screen Urine Fentanyl Screen Ur Barbiturates Screen Ur Phencyclidine Scrn Ur Amphetamines Screen U Benzodiazepines Scrn Urine Cocaine Screen U Marijuana (THC) Screen Ethyl Alcohol Chlam trachomat DNA PCR DETECTED A COVID-19 (ERIKA) Negative COVID-19 Clin Com See Note N.gonorrhoeae DNA (PCR) NOT DETECTED Meds/Allergies Meds Home Medications Medication Instructions Recorded Confirmed Type No Known Home Meds 01/09/23 01/09/23 History Allergies Allergies Allergy/AdvReac Type Severity Reaction Status Date / Time ibuprofen [Advil] AdvReac Unknown rash Verified 06/11/20 10:13 Mental Status Exam Mental Status Exam Narrative: Shahana was seen the morning after her admission. She is in hospital attire. She is alert but kept dozing off during the interview. Speech is fast and at times a little difficult to understand. Moderate eye contact. Affect is appropriate and varied. She continues to have some suicidal ideations but states to be safe here. She denies any auditory or visual hallucinations. No homicidal ideations. Cognitively she is intact when alert. Judgment is intact Assessment & Plan Assessment & Plan (1) Depression: Status: Acute Code(s): F32.A - Depression, unspecified (2) Suicidal ideation: Status: Acute Code(s): R45.851 - Suicidal ideations Plan In conclusion Shahana meets criteria for hospital level of care for safety and stabilization. She is interested in trying an antidepressant and I will try her on Celexa 10 mg daily. Side effects were reviewed. Methadone will be continued. Outpatient referrals to be made. Patient educated on: diagnosis, medication risk/benefits and substance abuse Reason for continued inpatient stay Substantial Risk for: harm to self Statement Statement: I have reviewed the history and physical and performed a pertinent examination on my patient. No changes have occurred unless specified. If the History and Physical was not performed prior to admission, the Hospitalist's service will be consulted for completing the admission physical. Time Spent With Patient Time: Total time managing care of this patient today ____ minutes.
--- NOTE | 2023-01-11 09:37 | PC.NURSE ---
Attempted to give Pt her am meds. She attempted to sit up ,layed back down, and appears to be sleeping. Respirations 18/ min.
[2023-01-11] MEDS: Escitalopram Oxalate 10 MG TABLET PO (10:09)
[2023-01-11] MEDS: methADONE HCl 20 MG/2 ML ORAL.CONC 125 MG PO (10:10)
[2023-01-11 20:00] VITALS: BP 94/55; PULSE 66; RESP 17; TEMP 36.3; O2SAT 98
[2023-01-11] MEDS: hydrOXYzine HCL 25 MG TABLET PO (21:23)
[2023-01-12] MEDS: Benzocaine 20 % Oral Gel 9 GM TUBE 1 APPL MUCOUS MEM ×2 (05:38→12:37)
[2023-01-12 06:00] VITALS: BP 96/52; PULSE 62; RESP 16; TEMP 36.6; O2SAT 98
[2023-01-12] MEDS: Escitalopram Oxalate 10 MG TABLET PO (09:16)
[2023-01-12] MEDS: methADONE HCl 20 MG/2 ML ORAL.CONC 125 MG PO (09:16)
[2023-01-12] MEDS: Doxycycline Monohydrate 100 MG CAPSULE PO ×2 (11:25→21:34)
--- NOTE | 2023-01-12 15:38 | P.PNPSI_ITS ---
Subjective Subjective Date of Service: 01/12/23 Reason For Visit: Depression Interim History: calm, cooperative. sleepy, nodding off easily. had to be roused from sleeping in chair in milieu for interview. she states she DID NOT make a suicide attempt MAIL ORDER BILLER, her boyfriend took the meds away from her as she was attempting. she states people are following me, identifying them as my ex boyfriend's ppl. discussed chlamydia Dx and doxy Tx. discussed insomnia and pt agreed to risper idone trial. ordered no visits or belongings due to staff's having found crack pipe in pt's body cavity at admission. per staff, on antibx for UTI. moderately dep/anx. wants sleep meds for MNA. social, attending groups. no visits, no belongings. nodding off during dinner. Mental Status Exam Mental Status Exam Narrative: She is in hospital attire. She is alert but kept dozing off during the interview. Speech is nml rate and amount. Moderate eye contact. Affect is appropriate and varied. no SI/HI/AVH expressed. Cognitively she is intact when alert. Judgment is intact Diagnostics Vital Signs (24Hr): Vital Signs - 24 hr 01/11/23 20:00 01/12/23 06:00 Temperature 97.4 F 97.9 F Pulse Rate 66 62 Respiratory Rate 17 16 Blood Pressure 94/55 L 96/52 L Pulse Oximetry 98 98 Oxygen Delivery Method Room Air BMI result Body Mass Index 29.6 Labs 01/09/23 21:16 01/11/23 07:01 Labs: Laboratory Results - last 48 hr 01/11/23 07:01 Sodium 137 Potassium 3.6 Chloride 106 Carbon Dioxide 22 Anion Gap 13 BUN 18 H Creatinine 0.76 Estim Creat Clear Calc 95.1 Estimated GFR > 60 Fasting Glucose 100 H Calcium 9.4 Total Bilirubin 0.3 AST 64 H ALT 74 H Alkaline Phosphatase 78 Total Protein 7.6 Albumin 3.3 L Triglycerides 166 Cholesterol 164 LDL Cholesterol, Calc 86 HDL Cholesterol 45 Imaging Radiology Impressions: ITS Impressions Abdomen X-Ray 01/10/23 20:12 IMPRESSION: No radiopaque foreign body or unusual structure seen in the abdomen or pelvis. There is a calcified cysts of the spleen. A noncalcified 3.1 cm cyst of the spleen was seen on the previous CT abdomen and pelvis exam 03/24/2009 in same location. Pelvis X-Ray 01/10/23 20:12 IMPRESSION: No radiopaque foreign body or unusual structure seen in the abdomen or pelvis. There is a calcified cysts of the spleen. A noncalcified 3.1 cm cyst of the spleen was seen on the previous CT abdomen and pelvis exam 03/24/2009 in same location. Medications Medications Current Medications Acetaminophen (Acetaminophen 325 Mg Tablet) 650 mg PO Q6H PRN PRN Reason: Headache/Pain Mild Scale (1-3) Last Admin: 01/10/23 21:10 Dose: 650 mg Al Hydroxide/Mg Hydroxide (Magnesium Hydrox/Alum Hydrox 30 Ml Oral.Susp) 30 ml PO Q6H PRN PRN Reason: Heartburn/Nausea Benzocaine (Benzocaine 20 % Oral Gel 9 Gm Tube) 1 appl MUCOUS MEM Q4H PRN; Protocol PRN Reason: dental pain Last Admin: 01/12/23 12:37 Dose: 1 appl Cefuroxime Axetil (Cefuroxime Axetil 250 Mg Tablet) 250 mg PO BID GIBSON Stop: 01/15/23 23:00 Last Admin: 01/12/23 09:16 Dose: 250 mg Doxycycline Monohydrate (Doxycycline Monohydrate 100 Mg Capsule) 100 mg PO Q12H GIBSON Stop: 01/19/23 10:59 Last Admin: 01/12/23 11:25 Dose: 100 mg Escitalopram Oxalate (Escitalopram Oxalate 10 Mg Tablet) 10 mg PO DAILY [facility] Last Admin: 01/12/23 09:16 Dose: 10 mg Hydroxyzine HCl (Hydroxyzine Hcl 25 Mg Tablet) 25 mg PO Q6H PRN PRN Reason: Anxiety Last Admin: 01/11/23 21:23 Dose: 25 mg Magnesium Hydroxide (Milk Of Magnesia 30 Ml Oral.Susp) 30 ml PO DAILY PRN PRN Reason: Constipation Methadone HCl (Methadone Hcl 20 Mg/2 Ml Oral.Conc) 125 mg PO DAILY [facility] Last Admin: 01/12/23 09:16 Dose: 125 mg Risperidone (Risperidone 1 Mg Tablet) 1 mg PO BEDTIME GIBSON Trazodone HCl (Trazodone Hcl 50 Mg Tablet) 50 mg PO BEDTIME MRX1 PRN PRN Reason: Insomnia Allergies Allergies Allergy/AdvReac Type Severity Reaction Status Date / Time ibuprofen [Advil] AdvReac Unknown rash Verified 06/11/20 10:13 Assessment & Plan Assessment & Plan (1) Depression: Status: Acute Code(s): F32.A - Depression, unspecified (2) Suicidal ideation: Status: Acute Code(s): R45.851 - Suicidal ideations Plan 01/11: She is interested in trying an antidepressant and I will try her on Celexa 10 mg daily. Side effects were reviewed. Methadone will be continued. Outpatient referrals to be made. 01/12: chlamydia POS. start doxy for 7 days. reporting sleep difficulties, agrees to risperidone 1 mg QHS. Reason for continued inpatient stay Substantial Risk for: harm to self, inability to function and rapid decompensation Time Spent With Patient Time: Total time managing care of this patient today _35___ minutes.
[2023-01-12 18:35] VITALS: BP 104/56; PULSE 83; RESP 18; TEMP 36.7; O2SAT 96
[2023-01-12 20:05] VITALS: BP 128/65; PULSE 91
[2023-01-12] MEDS: risperiDONE 1 MG TABLET PO (21:34)
[2023-01-12] MEDS: hydrOXYzine HCL 25 MG TABLET PO (21:34)
[2023-01-12] MEDS: traZODone HCL 50 MG TABLET PO (21:36)
[2023-01-13 09:26] VITALS: BP 101/65; PULSE 76; TEMP 36.7; O2SAT 99
[2023-01-13] MEDS: Escitalopram Oxalate 10 MG TABLET PO (10:26)
[2023-01-13] MEDS: methADONE HCl 20 MG/2 ML ORAL.CONC 125 MG PO (10:27)
[2023-01-13] MEDS: Doxycycline Monohydrate 100 MG CAPSULE PO ×2 (10:28→21:38)
--- NOTE | 2023-01-13 16:03 | P.PNPSI_ITS ---
Subjective Subjective Date of Service: 01/13/23 Reason For Visit: Depression Interim History: sleepiness continues. pt in her bed asleep late morning, had declined methadone up tot hat point. rousable, pleasant, cooperative. informed of plan for utox and xray due to her sleepiness. states she is interested in CSSs. states she slept better last night with the risperidone despite having informed MD only moments earlier that she is sleeping poorly. no change to current mgmt. per s taff, not attending groups. c/o poor sleep but appears to sleep through the night. anx/dep 8. passive suicidality. Mental Status Exam Mental Status Exam Narrative: She is in hospital attire. She remains alert once awakened. Speech is nml rate and amount. Moderate eye contact. Affect is appropriate and varied. no SI/HI/AVH expressed. Cognitively she is intact when alert. Judgment is intact Diagnostics Vital Signs (24Hr): Vital Signs - 24 hr 01/12/23 18:35 01/12/23 20:05 01/13/23 09:26 Temperature 98.0 F 98.1 F Pulse Rate 83 91 76 Respiratory Rate 18 Blood Pressure 104/56 L 128/65 101/65 Pulse Oximetry 96 99 Oxygen Delivery Method Room Air Room Air BMI result Body Mass Index 29.6 Labs 01/09/23 21:16 01/11/23 07:01 Imaging Radiology Impressions: ITS Impressions Abdomen X-Ray 01/10/23 20:12 IMPRESSION: No radiopaque foreign body or unusual structure seen in the abdomen or pelvis. There is a calcified cysts of the spleen. A noncalcified 3.1 cm cyst of the spleen was seen on the previous CT abdomen and pelvis exam 03/24/2009 in same location. Pelvis X-Ray 01/10/23 20:12 IMPRESSION: No radiopaque foreign body or unusual structure seen in the abdomen or pelvis. There is a calcified cysts of the spleen. A noncalcified 3.1 cm cyst of the spleen was seen on the previous CT abdomen and pelvis exam 03/24/2009 in same location. Pelvis X-Ray 01/13/23 11:11 IMPRESSION: No foreign body seen. Medications Medications Current Medications Acetaminophen (Acetaminophen 325 Mg Tablet) 650 mg PO Q6H PRN PRN Reason: Headache/Pain Mild Scale (1-3) Last Admin: 01/10/23 21:10 Dose: 650 mg Al Hydroxide/Mg Hydroxide (Magnesium Hydrox/Alum Hydrox 30 Ml Oral.Susp) 30 ml PO Q6H PRN PRN Reason: Heartburn/Nausea Benzocaine (Benzocaine 20 % Oral Gel 9 Gm Tube) 1 appl MUCOUS MEM Q4H PRN; Protocol PRN Reason: dental pain Last Admin: 01/12/23 12:37 Dose: 1 appl Cefuroxime Axetil (Cefuroxime Axetil 250 Mg Tablet) 250 mg PO BID GIBSON Stop: 01/15/23 23:00 Last Admin: 01/13/23 10:28 Dose: 250 mg Doxycycline Monohydrate (Doxycycline Monohydrate 100 Mg Capsule) 100 mg PO Q12H GIBSON Stop: 01/19/23 10:59 Last Admin: 01/13/23 10:28 Dose: 100 mg Escitalopram Oxalate (Escitalopram Oxalate 10 Mg Tablet) 10 mg PO DAILY [facility] Last Admin: 01/13/23 10:26 Dose: 10 mg Hydroxyzine HCl (Hydroxyzine Hcl 25 Mg Tablet) 25 mg PO Q6H PRN PRN Reason: Anxiety Last Admin: 01/12/23 21:34 Dose: 25 mg Magnesium Hydroxide (Milk Of Magnesia 30 Ml Oral.Susp) 30 ml PO DAILY PRN PRN Reason: Constipation Methadone HCl (Methadone Hcl 20 Mg/2 Ml Oral.Conc) 125 mg PO DAILY [facility] Last Admin: 01/13/23 10:27 Dose: 125 mg Risperidone (Risperidone 1 Mg Tablet) 1 mg PO BEDTIME GIBSON Last Admin: 01/12/23 21:34 Dose: 1 mg Trazodone HCl (Trazodone Hcl 50 Mg Tablet) 50 mg PO BEDTIME MRX1 PRN PRN Reason: Insomnia Last Admin: 01/12/23 21:36 Dose: 50 mg Allergies Allergies Allergy/AdvReac Type Severity Reaction Status Date / Time ibuprofen [Advil] AdvReac Unknown rash Verified 06/11/20 10:13 Assessment & Plan Assessment & Plan (1) Depression: Status: Acute Code(s): F32.A - Depression, unspecified (2) Suicidal ideation: Status: Acute Code(s): R45.851 - Suicidal ideations Plan 01/11: She is interested in trying an antidepressant and I will try her on Celexa 10 mg daily. Side effects were reviewed. Methadone will be continued. Outpatient referrals to be made. 01/12: chlamydia POS. start doxy for 7 days. reporting sleep difficulties, agrees to risperidone 1 mg QHS. 01/13: slept better last night. still inexplicably sedated throughout the day. wants CSS. continue current mgmt. Reason for continued inpatient stay Substantial Risk for: inability to function Time Spent With Patient Time: Total time managing care of this patient today __25__ minutes.
[2023-01-13] MEDS: hydrOXYzine HCL 25 MG TABLET PO (21:38)
[2023-01-13] MEDS: risperiDONE 1 MG TABLET PO (21:38)
[2023-01-13] MEDS: traZODone HCL 50 MG TABLET PO (21:38)
[2023-01-13 21:52] VITALS: BP 94/50; PULSE 77; RESP 14; TEMP 36.5; O2SAT 96
[2023-01-14 08:47] VITALS: BP 120/59; PULSE 97; RESP 18; TEMP 36.7; O2SAT 99
[2023-01-14] MEDS: Escitalopram Oxalate 10 MG TABLET PO (08:48)
[2023-01-14] MEDS: methADONE HCl 20 MG/2 ML ORAL.CONC 125 MG PO (08:49)
[2023-01-14 11:19] LABS: Amphetamine Screen Urine Not Detected (Not Detect); Barbiturates, Urine Not Detected (Not Detect); Benzodiazepines Screen Urine Not Detected (Not Detect); Cannabinoid Screen Urine Not Detected (Not Detect); Cocaine Screen Urine POSITIVE (Not Detect); Fentanyl, urine POSITIVE (Not Detect); Opiate Screen Urine Not Detected (Not Detect); Phencyclidine Screen Urine Not Detected (Not Detect)
[2023-01-14] MEDS: Doxycycline Monohydrate 100 MG CAPSULE PO ×2 (11:30→21:00)
[2023-01-14] MEDS: Benzocaine 20 % Oral Gel 9 GM TUBE 1 APPL MUCOUS MEM (15:31)
--- NOTE | 2023-01-14 15:53 | P.PNPSI_ITS ---
Subjective Subjective Date of Service: 01/14/23 Reason For Visit: Depression Interim History: calm, cooperative. appears much less sleepy today. interested in thursday discharge, feeling improved. per staff, pleasant. mod anx/dep. eves drowsy. slumped over chair in eves. napping a lot in general. Mental Status Exam Mental Status Exam Narrative: She is in hospital attire. alert and oriented. Speech is nml rate and amount. good eye contact. Affect is appropriate and varied. no SI/HI/AVH expressed. Cognitively she is intact. Judgment is intact Diagnostics Vital Signs (24Hr): Vital Signs - 24 hr 01/13/23 21:52 01/14/23 08:47 Temperature 97.7 F 98.0 F Pulse Rate 77 97 Respiratory Rate 14 18 Blood Pressure 94/50 L 120/59 L Pulse Oximetry 96 99 Oxygen Delivery Method Room Air Room Air BMI result Body Mass Index 29.6 Labs 01/09/23 21:16 01/11/23 07:01 Labs: Laboratory Results - last 48 hr 01/14/23 10:08 Urine Opiates Screen Not Detected Urine Fentanyl Screen POSITIVE H Ur Barbiturates Screen Not Detected Ur Phencyclidine Scrn Not Detected Ur Amphetamines Screen Not Detected U Benzodiazepines Scrn Not Detected Urine Cocaine Screen POSITIVE H U Marijuana (THC) Screen Not Detected Imaging Radiology Impressions: ITS Impressions Abdomen X-Ray 01/10/23 20:12 IMPRESSION: No radiopaque foreign body or unusual structure seen in the abdomen or pelvis. There is a calcified cysts of the spleen. A noncalcified 3.1 cm cyst of the spleen was seen on the previous CT abdomen and pelvis exam 03/24/2009 in same location. Pelvis X-Ray 01/10/23 20:12 IMPRESSION: No radiopaque foreign body or unusual structure seen in the abdomen or pelvis. There is a calcified cysts of the spleen. A noncalcified 3.1 cm cyst of the spleen was seen on the previous CT abdomen and pelvis exam 03/24/2009 in same location. Pelvis X-Ray 01/13/23 11:11 IMPRESSION: No foreign body seen. Medications Medications Current Medications Acetaminophen (Acetaminophen 325 Mg Tablet) 650 mg PO Q6H PRN PRN Reason: Headache/Pain Mild Scale (1-3) Last Admin: 01/10/23 21:10 Dose: 650 mg Al Hydroxide/Mg Hydroxide (Magnesium Hydrox/Alum Hydrox 30 Ml Oral.Susp) 30 ml PO Q6H PRN PRN Reason: Heartburn/Nausea Benzocaine (Benzocaine 20 % Oral Gel 9 Gm Tube) 1 appl MUCOUS MEM Q4H PRN; Protocol PRN Reason: dental pain Last Admin: 01/14/23 15:31 Dose: 1 appl Cefuroxime Axetil (Cefuroxime Axetil 250 Mg Tablet) 250 mg PO BID GIBSON Stop: 01/15/23 23:00 Last Admin: 01/14/23 08:48 Dose: 250 mg Doxycycline Monohydrate (Doxycycline Monohydrate 100 Mg Capsule) 100 mg PO Q12H GIBSON Stop: 01/19/23 10:59 Last Admin: 01/14/23 11:30 Dose: 100 mg Escitalopram Oxalate (Escitalopram Oxalate 10 Mg Tablet) 10 mg PO DAILY [facility] Last Admin: 01/14/23 08:48 Dose: 10 mg Hydroxyzine HCl (Hydroxyzine Hcl 25 Mg Tablet) 25 mg PO Q6H PRN PRN Reason: Anxiety Last Admin: 01/13/23 21:38 Dose: 25 mg Magnesium Hydroxide (Milk Of Magnesia 30 Ml Oral.Susp) 30 ml PO DAILY PRN PRN Reason: Constipation Methadone HCl (Methadone Hcl 20 Mg/2 Ml Oral.Conc) 125 mg PO DAILY [facility] Last Admin: 01/14/23 08:49 Dose: 125 mg Risperidone (Risperidone 1 Mg Tablet) 1 mg PO BEDTIME [facility] Last Admin: 01/13/23 21:38 Dose: 1 mg Trazodone HCl (Trazodone Hcl 50 Mg Tablet) 50 mg PO BEDTIME MRX1 PRN PRN Reason: Insomnia Last Admin: 01/13/23 21:38 Dose: 50 mg Allergies Allergies Allergy/AdvReac Type Severity Reaction Status Date / Time ibuprofen [Advil] AdvReac Unknown rash Verified 06/11/20 10:13 Assessment & Plan Assessment & Plan (1) Depression: Status: Acute Code(s): F32.A - Depression, unspecified (2) Suicidal ideation: Status: Acute Code(s): R45.851 - Suicidal ideations Plan 01/11: She is interested in trying an antidepressant and I will try her on Celexa 10 mg daily. Side effects were reviewed. Methadone will be continued. Outpatient referrals to be made. 01/12: chlamydia POS. start doxy for 7 days. reporting sleep difficulties, agrees to risperidone 1 mg QHS. 01/13: slept better last night. still inexplicably sedated throughout the day. wants CSS. continue current mgmt. 01/14: more alert today, says she is feeling better and interested in discharge on thursday. she will F/U with [facility] referrals once discharged. Reason for continued inpatient stay Substantial Risk for: rapid decompensation Time Spent With Patient Time: Total time managing care of this patient today _25___ minutes.
[2023-01-14 20:21] VITALS: BP 92/50; PULSE 70; RESP 16; TEMP 36.6; O2SAT 97
[2023-01-14] MEDS: hydrOXYzine HCL 25 MG TABLET PO (21:00)
[2023-01-14] MEDS: traZODone HCL 50 MG TABLET PO (21:00)
[2023-01-14] MEDS: risperiDONE 1 MG TABLET PO (21:00)
[2023-01-15 07:00] VITALS: BMI 31.9
[2023-01-15 09:01] VITALS: BP 95/54; PULSE 75; RESP 16; TEMP 36.5; O2SAT 97
[2023-01-15] MEDS: Acetaminophen 325 MG TABLET 650 MG PO (09:02)
[2023-01-15] MEDS: Escitalopram Oxalate 10 MG TABLET PO (09:02)
[2023-01-15] MEDS: methADONE HCl 20 MG/2 ML ORAL.CONC 125 MG PO (09:03)
[2023-01-15] MEDS: Benzocaine 20 % Oral Gel 9 GM TUBE 1 APPL MUCOUS MEM ×2 (09:19→18:03)
[2023-01-15] MEDS: Doxycycline Monohydrate 100 MG CAPSULE PO ×2 (11:52→21:31)
--- NOTE | 2023-01-15 12:27 | PM.PSYDC ---
DS: Providers Provider Date of Service: 01/15/23 Date of admission: 01/10/23 12:04 Primary care physician: Nellie Grant MD Consults: 01/09/23 20:31 Consult to Care Team Stat Comment: Reason for consultation: si DS: Diagnosis Discharge Diagnosis (1) Depression: Status: Acute (2) Suicidal ideation: Status: Acute DS: Medications Discharge Medications Home Medications: Previous Rx's Medication Instructions Recorded benzocaine 20 % mucosal gel 1 appl mucous membrane Q4H PRN 01/15/23 (Anbesol (benzocaine) Maximum dental pain 30 days #30 grams Strength) doxycycline monohydrate 100 mg 100 mg PO Q12H 3 days #6 caps 01/15/23 capsule escitalopram oxalate 10 mg tablet 10 mg PO DAILY 30 days #30 tabs 01/15/23 hydroxyzine HCl 25 mg tablet 25 mg PO Q6H PRN Anxiety 30 days 01/15/23 #60 tabs methadone 10 mg/mL oral 125 mg (12.5 mL) PO DAILY #0 mL 01/15/23 concentrate (Methadose) risperidone 1 mg tablet 1 mg PO BEDTIME 30 days #30 tabs 01/15/23 trazodone 50 mg tablet 50 mg PO BEDTIME 30 days #30 tabs 01/15/23 Mental Status Exam Mental Status Exam Narrative: She is in hospital attire. alert and oriented. Speech is nml rate and amount. good eye contact. Affect is appropriate and varied. no SI/HI/AVH. Cognitively she is intact. Judgment is intact Data Data Completed and Pending Completed studies during hospitalization [Text1]: 01/09/23 01/09/23 01/09/23 21:16 21:17 21:17 WBC 8.8 RBC 4.67 Hgb 13.7 Hct 41.3 MCV 88.4 MCH 29.3 MCHC 33.2 RDW 13.0 Plt Count 212 MPV 8.7 L Immature Gran % (Auto) 0.5 H Neut % (Auto) 56.1 Lymph % (Auto) 35.8 [place] % (Auto) 6.7 Eos % (Auto) 0.7 Baso % (Auto) 0.2 Lymph # (Auto) 3.2 [place] # (Auto) 0.6 Eos # (Auto) 0.1 Baso # (Auto) 0.0 Abs Immat Gran (auto) 0.04 H Absolute Neuts (auto) 4.9 Absolute Nucleated RBC 0.000 Nucleated RBC % (auto) 0.0 Sodium 139 Potassium 3.6 Chloride 105 Carbon Dioxide 26 Anion Gap 12 BUN 15 Creatinine 0.86 Estim Creat Clear Calc 84.0 Estimated GFR > 60 Random Glucose 74 Fasting Glucose Calcium 9.6 Total Bilirubin 0.6 Direct Bilirubin 0.1 AST 59 H ALT 72 H Alkaline Phosphatase 67 Total Protein 8.7 H Albumin 3.9 Triglycerides Cholesterol LDL Cholesterol, Calc HDL Cholesterol TSH 1.08 Urine Color Urine Appearance Urine pH Ur Specific [place] Urine Protein Urine Glucose (UA) Urine Ketones Urine Blood Urine Nitrite Ur Leukocyte Esterase Urine RBC Urine WBC Ur Squamous Epith Cells Urine Bacteria Hyaline Casts Urine Test Urine Opiates Screen Urine Fentanyl Screen Ur Barbiturates Screen Ur Phencyclidine Scrn Ur Amphetamines Screen U Benzodiazepines Scrn Urine Cocaine Screen U Marijuana (THC) Screen Ethyl Alcohol < 10 Chlam trachomat DNA PCR COVID-19 (ERIKA) COVID-19 Clin Com N.gonorrhoeae DNA (PCR) 01/09/23 01/09/23 01/09/23 21:17 21:18 21:18 WBC RBC Hgb Hct MCV MCH MCHC RDW Plt Count MPV Immature Gran % (Auto) Neut % (Auto) Lymph % (Auto) [place] % (Auto) Eos % (Auto) Baso % (Auto) Lymph # (Auto) [place] # (Auto) Eos # (Auto) Baso # (Auto) Abs Immat Gran (auto) Absolute Neuts (auto) Absolute Nucleated RBC Nucleated RBC % (auto) Sodium Potassium Chloride Carbon Dioxide Anion Gap BUN Creatinine Estim Creat Clear Calc Estimated GFR Random Glucose Fasting Glucose Calcium Total Bilirubin Direct Bilirubin AST ALT Alkaline Phosphatase Total Protein Albumin Triglycerides Cholesterol LDL Cholesterol, Calc HDL Cholesterol TSH Urine Color Dark Yellow Urine Appearance Clear Urine pH 5.5 Ur Specific [place] >= 1.030 H Urine Protein Trace Urine Glucose (UA) Negative Urine Ketones Trace Urine Blood Negative Urine Nitrite Positive H Ur Leukocyte Esterase Moderate (2+) H Urine RBC 0-2 Urine WBC 21-50 H Ur Squamous Epith Cells 3-5 Urine Bacteria 4+ Hyaline Casts 0-2 Urine Test NEGATIVE Urine Opiates Screen Not Detected Urine Fentanyl Screen POSITIVE H Ur Barbiturates Screen Not Detected Ur Phencyclidine Scrn Not Detected Ur Amphetamines Screen Not Detected U Benzodiazepines Scrn Not Detected Urine Cocaine Screen POSITIVE H U Marijuana (THC) Screen Not Detected Ethyl Alcohol Chlam trachomat DNA PCR COVID-19 (ERIKA) COVID-19 Clin Com N.gonorrhoeae DNA (PCR) 01/09/23 01/09/23 01/11/23 23:24 23:28 07:01 WBC RBC Hgb Hct MCV MCH MCHC RDW Plt Count MPV Immature Gran % (Auto) Neut % (Auto) Lymph % (Auto) [place] % (Auto) Eos % (Auto) Baso % (Auto) Lymph # (Auto) [place] # (Auto) Eos # (Auto) Baso # (Auto) Abs Immat Gran (auto) Absolute Neuts (auto) Absolute Nucleated RBC Nucleated RBC % (auto) Sodium 137 Potassium 3.6 Chloride 106 Carbon Dioxide 22 Anion Gap 13 BUN 18 H Creatinine 0.76 Estim Creat Clear Calc 95.1 Estimated GFR > 60 Random Glucose Fasting Glucose 100 H Calcium 9.4 Total Bilirubin 0.3 Direct Bilirubin AST 64 H ALT 74 H Alkaline Phosphatase 78 Total Protein 7.6 Albumin 3.3 L Triglycerides 166 Cholesterol 164 LDL Cholesterol, Calc 86 HDL Cholesterol 45 TSH Urine Color Urine Appearance Urine pH Ur Specific [place] Urine Protein Urine Glucose (UA) Urine Ketones Urine Blood Urine Nitrite Ur Leukocyte Esterase Urine RBC Urine WBC Ur Squamous Epith Cells Urine Bacteria Hyaline Casts Urine Test Urine Opiates Screen Urine Fentanyl Screen Ur Barbiturates Screen Ur Phencyclidine Scrn Ur Amphetamines Screen U Benzodiazepines Scrn Urine Cocaine Screen U Marijuana (THC) Screen Ethyl Alcohol Chlam trachomat DNA PCR DETECTED A COVID-19 (ERIKA) Negative COVID-19 Clin Com See Note N.gonorrhoeae DNA (PCR) NOT DETECTED 01/14/23 10:08 WBC RBC Hgb Hct MCV MCH MCHC RDW Plt Count MPV Immature Gran % (Auto) Neut % (Auto) Lymph % (Auto) [place] % (Auto) Eos % (Auto) Baso % (Auto) Lymph # (Auto) [place] # (Auto) Eos # (Auto) Baso # (Auto) Abs Immat Gran (auto) Absolute Neuts (auto) Absolute Nucleated RBC Nucleated RBC % (auto) Sodium Potassium Chloride Carbon Dioxide Anion Gap BUN Creatinine Estim Creat Clear Calc Estimated GFR Random Glucose Fasting Glucose Calcium Total Bilirubin Direct Bilirubin AST ALT Alkaline Phosphatase Total Protein Albumin Triglycerides Cholesterol LDL Cholesterol, Calc HDL Cholesterol TSH Urine Color Urine Appearance Urine pH Ur Specific [place] Urine Protein Urine Glucose (UA) Urine Ketones Urine Blood Urine Nitrite Ur Leukocyte Esterase Urine RBC Urine WBC Ur Squamous Epith Cells Urine Bacteria Hyaline Casts Urine Test Urine Opiates Screen Not Detected Urine Fentanyl Screen POSITIVE H Ur Barbiturates Screen Not Detected Ur Phencyclidine Scrn Not Detected Ur Amphetamines Screen Not Detected U Benzodiazepines Scrn Not Detected Urine Cocaine Screen POSITIVE H U Marijuana (THC) Screen Not Detected Ethyl Alcohol Chlam trachomat DNA PCR COVID-19 (ERIKA) COVID-19 Clin Com N.gonorrhoeae DNA (PCR) 01/09/23 21:51 Urine clean catch - Urine shaw top Urine Culture - Final Escherichia coli Corynebacterium species Imaging Diagnostic Imaging Impressions Abdomen X-Ray 01/10/23 20:12 IMPRESSION: No radiopaque foreign body or unusual structure seen in the abdomen or pelvis. There is a calcified cysts of the spleen. A noncalcified 3.1 cm cyst of the spleen was seen on the previous CT abdomen and pelvis exam 03/24/2009 in same location. Pelvis X-Ray 01/10/23 20:12 IMPRESSION: No radiopaque foreign body or unusual structure seen in the abdomen or pelvis. There is a calcified cysts of the spleen. A noncalcified 3.1 cm cyst of the spleen was seen on the previous CT abdomen and pelvis exam 03/24/2009 in same location. Pelvis X-Ray 01/13/23 11:11 IMPRESSION: No foreign body seen. DS: Summary Hospital Course Hospital Course: per 01/11 admission note: Shahana is a 37-year-old , single, unemployed, mother of 4.? Two of her children are older and her younger children who are 11 and 14 were taken by [facility] about a year ago after her mother overdosed and passed.? She states that after her mother and her 19-year-old son was diagnosed with lymphoma and is starting to get treatment she became more depressed and started having more difficulties in coping.? She has not engaged in any kind of treatment nor on any medications for depression.? She does have history of heroin use from age [age] and has been on methadone 125 mg daily.? No alcohol abuse or dependence but uses crack cocaine, not every day.? She was brought to the emergency room after she took 10 100 mg sleeping pills but does not know the name.? She also is having plans to cut herself with a call box wirer.? She denies any previous suicide attempts.? She denies any previous hospitalizations.? She lives with her 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 is on SSI. Past Psychiatric History: None Medical Evaluation Reviewed: Yes [facility] Medical History? Anxiety Facial abscess Hypertension Hypothyroidism Right facial swelling Surgical History? History of section History of cholecystectomy History of toe surgery History of tubal ligation Family History: Substance abuse Social History: Shahana is 1 of 6 siblings.? Both parents are .? She was [place] in this area.? 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 She has had no marriages and 4 children from 2 different man who are involved in their lives.? Her younger children were taken away by [facility].? She currently lives with her 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 states that they have a good relationship. Substance History: Heroin dependence from age [age].? Current crack cocaine use Trauma History: No direct history of abuse Precis: 01/11:? She is interested in trying an antidepressant and I will try her on Celexa 10 mg daily.? Side effects were reviewed.? Methadone will be continued.? Outpatient referrals to be made. 01/12:? chlamydia POS.? start doxy for 7 days.? reporting sleep difficulties, agrees to risperidone 1 mg QHS. 01/13:? slept better last night.? still inexplicably sedated throughout the day.? wants CSS.? continue current mgmt. 01/14:? more alert today, says she is feeling better and interested in discharge on thursday.? she will F/U with CSS referrals once discharged. 01/15: affect bright. no safety concerns. meds reviewed, reconciled, prescribed. pt discharged as 3-day and pt was not committable. Time Spent with Patient Time attestation: Total time managing care of this patient today ____ minutes. Time spent: Greater than 30 minutes Discharge Plan Discharge Anticipated Discharge Date/Time: 01/16/23 10:00 Patient Disposition: Home, Self-Care Discharge Diagnosis: Depressive Disorder NOS Referrals: Nellie Cortez MD [Primary Care Provider] - 1 Week Discharge Medications: New trazodone 50 mg Tablet 50 mg PO BEDTIME 30 Days Qty: 30 0RF doxycycline monohydrate 100 mg Capsule 100 mg PO Q12H 3 Days Qty: 6 0RF hydroxyzine HCl 25 mg Tablet 25 mg PO Q6H PRN (Reason: Anxiety) 30 Days Qty: 60 0RF methadone [Methadose] 10 mg/mL Concentrate 125 mg PO DAILY Qty: 0 0RF Rx Instructions: Partial Fill upon patient request. Anbesol (benzocaine) Max Str 20 % Gel 1 appl mucous membrane Q4H PRN (Reason: dental pain) 30 Days Qty: 30 0RF Protocol: Apply to: Apply to: tooth risperidone 1 mg Tablet 1 mg PO BEDTIME 30 Days Qty: 30 0RF escitalopram oxalate 10 mg Tablet 10 mg PO DAILY 30 Days Qty: 30 0RF Discharge Orders: Discharge Order (Routine); Ordered 01/16/23 Ordered By: Jae Rodriguez Diet: Advance to usual diet Activity on Discharge: As tolerated Stand Alone Forms: Patient Portal Discharge page Care Plan Goals: remain safe and stable in the outpatient treatment setting Health Concerns: none Plan of Treatment: take medications as prescribed, attend appointments as scheduled Assessment: not at imminent risk of harm to self or others
[2023-01-15 18:00] VITALS: BP 116/55; PULSE 66; RESP 16; TEMP 36.4; O2SAT 98
[2023-01-15] MEDS: hydrOXYzine HCL 25 MG TABLET PO (20:31)
[2023-01-15] MEDS: traZODone HCL 50 MG TABLET PO (20:32)
[2023-01-15] MEDS: risperiDONE 1 MG TABLET PO (20:32)
[2023-01-16 08:34] VITALS: BP 107/64; PULSE 64; TEMP 36.6; O2SAT 99
[2023-01-16] MEDS: methADONE HCl 20 MG/2 ML ORAL.CONC 125 MG PO (08:35)
[2023-01-16] MEDS: Escitalopram Oxalate 10 MG TABLET PO (08:37)
--- NOTE | 2023-01-16 10:16 | PC.NURSE ---
Reviewed discharge information w pt, pt received copy of discharge instructions and verbalized understanding. Pt plans to take medications and attend appointments as scheduled. Pt denies SI/HI/AH/VH.
== END 2023-01-16 10:17 | disposition home or self-care (01) | DRG 754 ==
LOC: HO.ED 01-10 11:10 → HO.PADLT16 01-10 12:17
PROVIDERS: Nurse Practitioner Family; Physician Assistant Medical; Admitting Provider Psychiatry & Neurology Psychiatry; Emergency Provider Student in an Organized Health Care Education/Training Program; PCP Internal Medicine; Visit Provider Psychiatry & Neurology Psychiatry
DX: F32.A Depression, unspecified (principal); R45.851 Suicidal ideations; E03.9 Hypothyroidism, unspecified; A56.2 Chlamydial infection of genitourinary tract, unspecified; N39.0 Urinary tract infection, site not specified; B96.20 Unspecified Escherichia coli [E. coli] as the cause of diseases classified elsewhere; F11.20 Opioid dependence, uncomplicated; I10 Essential (primary) hypertension; Z20.822 Contact with and (suspected) exposure to COVID-19; Z87.891 Personal history of nicotine dependence; Z79.899 Other long term (current) drug therapy
CPT/HCPCS: 0353U; 36415; 72170; 74019; 80048; 80053; 80061; 80076; 80307; 81001; 81025; 84443; 85025; 87086; 87088; 87186; 87635; 92950; 93005; 99285; S9485

== ENCOUNTER 2023-01-24 22:35 | Inpatient (IN) | payer OTHER, SELFPAY ==
[2023-01-24 22:40] VITALS: BMI 28.3
[2023-01-24 23:01] VITALS: BP 119/80; PULSE 96; RESP 17; TEMP 36.6; O2SAT 97
[2023-01-25 00:10] LABS: Alanine Aminotransferase 114 U/L (0-31); Alkaline Phosphatase 70 U/L (39-117); Anion Gap 16 (12-20); Aspartate Amino Transferase 88 U/L (5-31); Bilirubin Total 1.1 mg/dL (0.0-1.0); Blood Urea Nitrogen 18 mg/dL (9-16); Calcium 9.4 mg/dL (8.4-10.2); Carbon Dioxide 19 mmol/L (22-29); Chloride 104 mmol/L (96-108); Estimated Glomerular Filt Rate > 60; Ethanol < 10 mg/dL; Glucose Random 114 mg/dL (60-115); Potassium 4.1 mmol/L (3.3-5.1); Sodium 135 mmol/L (135-145); Total Protein 8.9 g/dL (6.5-8.0)
--- NOTE | 2023-01-25 00:41 | ED.PSYCH ---
HPI - Psych General Chief Complaint: Psychiatric Symptoms Stated Complaint: SI Time Seen by Provider: 01/24/23 23:21 Source: patient and EMS Mode of arrival: EMS Limitations: no limitations History of Present Illness HPI Narrative: 37-year-old female with history of anxiety, depression presents with suicidal statements to PD. Patient reports feeling like she is being pursued by somebody. She is not sure who or for what reasons. Patient denies suicidal homicidal ideation. She does report cocaine crack abuse. Her symptoms today are moderate in nature. There is no clear relieving or exacerbating features. She denies auditory or visual hallucinations. Patient denies any physical complaints at this time. Patient does report history of psychiatric admissions. Patient does have an 11-year-old daughter. Related Data Home Medications Medication Instructions Recorded Confirmed escitalopram oxalate 10 mg tablet 10 mg PO DAILY 01/24/23 01/24/23 risperidone 1 mg tablet 1 mg PO BEDTIME 01/24/23 01/24/23 trazodone 50 mg tablet 50 mg PO BEDTIME 01/24/23 01/24/23 Previous Rx's Medication Instructions Recorded hydroxyzine HCl 25 mg tablet 25 mg PO Q6H PRN Anxiety 30 days 01/15/23 #60 tabs Allergies Allergy/AdvReac Type Severity Reaction Status Date / Time ibuprofen [Advil] AdvReac Unknown rash Verified 06/11/20 10:13 Review of Systems Review of Systems: CONSTITUTIONAL: Denies weight loss, fever and chills. HEENT: Denies changes in vision and hearing. RESPIRATORY: Denies SOB and cough. CV: Denies palpitations no CP. GI: Denies abdominal pain, nausea, vomiting and diarrhea. : Denies dysuria and urinary frequency. MSK: Denies myalgia and joint pain. SKIN: Denies rash and pruritus. NEUROLOGICAL: Denies headache and syncope. PSYCHIATRIC: Denies recent changes in mood. Denies anxiety and depression. All other ROS are negative unless in HPI PMFSH Past Medical History Medical History Anxiety Facial abscess Hypertension Hypothyroidism Right facial swelling Surgical History History of section History of cholecystectomy History of toe surgery History of tubal ligation Family History Family History Father Depression Mother Asthma Family/Other FH: mental illness Brother Alive and well Social History Social History Household Members: Significant Other and Friend(s) Housing: Other Housing Other:: building Do you presently have visiting nurse or other home services: No Alcohol intake: never Patient Tobacco Use Status: Former Tobacco user e-Cigarette/Vaping Use: Former Use Second Hand Smoke Exposure: No Substance Use Type: Crack/Cocaine Advance Directives: No Advance Directives Information Provided: No service: No Sexual orientation: Straight/Heterosexual Physical Exam Vital Signs: Vital Signs: Last Vital Signs Temp 97.8 F 01/24/23 23:01 Pulse 96 01/24/23 23:01 Resp 17 01/24/23 23:01 BP 119/80 01/24/23 23:01 Pulse Ox 97 01/24/23 23:01 O2 Del Method Room Air 01/24/23 23:01 BMI result Body Mass Index 28.3 GEN: Well developed, no acute distress, alert, oriented HEENT: Normocephalic, atraumatic, normal external ears, nose appears normal Eyes: Normal to appearance Neck: Supple, no lymphadenopathy Respiratory: Talks in complete sentences, no respiratory distress Extremities: No clubbing cyanosis or edema Neurologic: No focal neurologic deficits, cranial nerves 2-12 intact, gait normal Skin: No rash Course Course Course Narrative: Patient presents with suicidal statements to police department. She denies suicidality to me. She does report some seemingly paranoid delusions about being constantly chased. She does smoke crack cocaine. Is possible that her symptoms are more likely related to cocaine abuse. Patient will need a care team evaluation. At this time, most of the patient's lab tests are back. She will likely be medically cleared shortly for psychiatric evaluation Reevaluation(s) Reevaluation #1: Patient is medically cleared for Behavioral Health consultation. She will be placed in physician observation at this time pending re-evaluation and disposition. Time: 00:43 Reevaluation #2: Patient has been care team evaluation. I will sign out the patient to the oncoming provider 7:00 a.m. this morning Time: 06:19 Medications Administered Generic Name Dose Route Start Last Admin Trade Name Freq PRN Reason Stop Dose Admin Risperidone 1 mg 01/25/23 01:00 01/25/23 03:46 Risperidone 1 Mg Tablet PO Not Given BEDTIME GIBSON Trazodone HCl 50 mg 01/25/23 01:00 01/25/23 03:46 Trazodone Hcl 50 Mg Tablet PO Not Given BEDTIME GIBSON Medical Decision Making Medical Decision Making [facility] Narrative: Patient presents with possible suicidal statements and paranoia. Examination is otherwise benign. Differential diagnosis includes substance abuse, substance induced psychosis, depression, anxiety, mood disorder, psychosis Differential Diagnosis Differential Diagnoses: The differential diagnosis associated with the presentation includes (See above) Admission/Observation Consideration of admission/observation: Escalation of care including admission/observation considered Consult Healthcare Provider Management of the patient was discussed with: Behavioral Health Provider Lab Data [facility] Lab Attestation statement: I reviewed the patient's lab results. 01/24/23 23:42 01/24/23 23:42 Labs: Lab Results 01/24/23 01/24/23 01/24/23 Range/Units 23:42 23:42 23:42 WBC 8.4 (4.8-10.8) X10*3/uL RBC 4.55 (4.20-5.50) X10*6/uL Hgb 13.4 (12.0-16.0) g/dl Hct 39.9 (37.0-47.0) % MCV 87.7 (80.0-98.0) fL MCH 29.5 (27.0-33.0) pg MCHC 33.6 (31.0-35.0) g/dl RDW 12.9 (11.0-16.0) % Plt Count 222 (160-400) X10*3/uL MPV 8.6 L (9.4-12.3) fL Immature Gran % (Auto) 1.1 H (0.0-0.4) % Neut % (Auto) 62.0 (45-73) % Lymph % (Auto) 25.2 (20-40) % Logan % (Auto) 11.4 H (2-11) % Eos % (Auto) 0.1 (0-4) % Baso % (Auto) 0.2 (0-2) % Lymph # (Auto) 2.1 (1.2-4.9) X10*3/uL Logan # (Auto) 1.0 (0.1-1.2) X10*3/uL Eos # (Auto) 0.0 (0.0-0.4) X10*3/uL Baso # (Auto) 0.0 (0.0-0.2) X10*3/uL Abs Immat Gran (auto) 0.09 H (0.00-0.03) X10*3/uL Absolute Neuts (auto) 5.2 (2.0-8.3) x10*3/uL Absolute Nucleated RBC 0.000 (0.0-0.012) X10*3/uL Nucleated RBC % (auto) 0.0 (0.0-0.2) /100WBC Sodium 135 (135-145) mmol/L Potassium 4.1 (3.3-5.1) mmol/L Chloride 104 (96-108) mmol/L Carbon Dioxide 19 L (22-29) mmol/L Anion Gap 16 (12-20) BUN 18 H (9-16) mg/dL Creatinine 0.93 (0.5-1.4) mg/dL Estim Creat Clear Calc 85.0 Estimated GFR > 60 Random Glucose 114 (60-115) mg/dL Calcium 9.4 (8.4-10.2) mg/dL Total Bilirubin 1.1 H (0.0-1.0) mg/dL AST 88 H (5-31) U/L ALT 114 H (0-31) U/L Alkaline Phosphatase 70 (39-117) U/L Total Protein 8.9 H (6.5-8.0) g/dL Albumin 4.0 (3.5-5.0) g/dL Urine Color Urine Appearance Urine pH (5.0-9.0) Ur Specific Minot (1.005-1.025) Urine Protein (Neg-Trace) mg/dL Urine Glucose (UA) (Negative) mg/dL Urine Ketones (Negative) mg/dL Urine Blood (Negative) Urine Nitrite (Negative) Ur Leukocyte Esterase (Negative) Urine Test (NEGATIVE) Salicylates < 5.0 L (15-30) mg/dL Urine Opiates Screen (Not Detect) Urine Fentanyl Screen (Not Detect) Acetaminophen < 17 (<30) mcg/mL Ur Barbiturates Screen (Not Detect) Ur Phencyclidine Scrn (Not Detect) Ur Amphetamines Screen (Not Detect) U Benzodiazepines Scrn (Not Detect) Urine Cocaine Screen (Not Detect) U Marijuana (THC) Screen (Not Detect) Ethyl Alcohol < 10 mg/dL 01/25/23 01/25/23 01/25/23 Range/Units 00:38 00:38 00:38 WBC (4.8-10.8) X10*3/uL RBC (4.20-5.50) X10*6/uL Hgb (12.0-16.0) g/dl Hct (37.0-47.0) % MCV (80.0-98.0) fL MCH (27.0-33.0) pg MCHC (31.0-35.0) g/dl RDW (11.0-16.0) % Plt Count (160-400) X10*3/uL MPV (9.4-12.3) fL Immature Gran % (Auto) (0.0-0.4) % Neut % (Auto) (45-73) % Lymph % (Auto) (20-40) % Logan % (Auto) (2-11) % Eos % (Auto) (0-4) % Baso % (Auto) (0-2) % Lymph # (Auto) (1.2-4.9) X10*3/uL Logan # (Auto) (0.1-1.2) X10*3/uL Eos # (Auto) (0.0-0.4) X10*3/uL Baso # (Auto) (0.0-0.2) X10*3/uL Abs Immat Gran (auto) (0.00-0.03) X10*3/uL Absolute Neuts (auto) (2.0-8.3) x10*3/uL Absolute Nucleated RBC (0.0-0.012) X10*3/uL Nucleated RBC % (auto) (0.0-0.2) /100WBC Sodium (135-145) mmol/L Potassium (3.3-5.1) mmol/L Chloride (96-108) mmol/L Carbon Dioxide (22-29) mmol/L Anion Gap (12-20) BUN (9-16) mg/dL Creatinine (0.5-1.4) mg/dL Estim Creat Clear Calc Estimated GFR Random Glucose (60-115) mg/dL Calcium (8.4-10.2) mg/dL Total Bilirubin (0.0-1.0) mg/dL AST (5-31) U/L ALT (0-31) U/L Alkaline Phosphatase (39-117) U/L Total Protein (6.5-8.0) g/dL Albumin (3.5-5.0) g/dL Urine Color Dark Yellow Urine Appearance Clear Urine pH 5.5 (5.0-9.0) Ur Specific Min[place] >= 1.030 H (1.005-1.025) Urine Protein Trace (Neg-Trace) mg/dL Urine Glucose (UA) Negative (Negative) mg/dL Urine Ketones Negative (Negative) mg/dL Urine Blood Negative (Negative) Urine Nitrite Negative (Negative) Ur Leukocyte Esterase Negative (Negative) Urine Test NEGATIVE (NEGATIVE) Salicylates (15-30) mg/dL Urine Opiates Screen POSITIVE H (Not Detect) Urine Fentanyl Screen POSITIVE H (Not Detect) Acetaminophen (<30) mcg/mL Ur Barbiturates Screen Not Detected (Not Detect) Ur Phencyclidine Scrn Not Detected (Not Detect) Ur Amphetamines Screen Not Detected (Not Detect) U Benzodiazepines Scrn Not Detected (Not Detect) Urine Cocaine Screen POSITIVE H (Not Detect) U Marijuana (THC) Screen Not Detected (Not Detect) Ethyl Alcohol mg/dL Independent Historian Clinical information obtained from an independent historian. History obtained from or confirmed by: EMS External Record Review External record reviewed: Inpatient record (Discharge summary from 01/16/2023) Prescription Management I considered prescription management with: Other (Psychiatric medications) Chronic Conditions Patient?s care impacted by: Other (Depression) Social Determinants Patient?s care significantly limited by Social Determinants of Health including: Other Social Determinant of Health (Drug abuse) Discharge Plan Discharge Clinical Impression: Suicidal ideation, Crack cocaine use Patient Disposition: Still a Patient Prescriptions: No Action trazodone 50 mg tablet 50 mg PO BEDTIME risperidone 1 mg tablet 1 mg PO BEDTIME escitalopram oxalate 10 mg tablet 10 mg PO DAILY hydroxyzine HCl 25 mg Tablet 25 mg PO Q6H PRN (Reason: Anxiety) 30 Days Qty: 60 0RF Interventions: Archuleta-Suicide Risk Severity Scale Last Done: 01/24/23 22:42
[2023-01-25 00:48] LABS: Appearance Urine Clear; Color Urine Dark Yellow; Glucose Urine UA Negative (Negative); Leukocyte Esterase Urine Negative (Negative); Nitrite Urine Negative (Negative); PH 5.5 (5.0-9.0); Specific Gravity - Urine >= 1.030 (1.005-1.025); Urine Blood Negative (Negative); Urine Ketones Negative (Negative); Urine Protein Trace mg/dL (Neg-Trace)
[2023-01-25 00:49] LABS: UPreg QC Valid YES; Urine Pregnancy NEGATIVE (NEGATIVE)
[2023-01-25 00:58] LABS: Amphetamine Screen Urine Not Detected (Not Detect); Barbiturates, Urine Not Detected (Not Detect); Benzodiazepines Screen Urine Not Detected (Not Detect); Cannabinoid Screen Urine Not Detected (Not Detect); Cocaine Screen Urine POSITIVE (Not Detect); Fentanyl, urine POSITIVE (Not Detect); Opiate Screen Urine POSITIVE (Not Detect); Phencyclidine Screen Urine Not Detected (Not Detect)
--- NOTE | 2023-01-25 05:47 | PC.NURSE ---
patient slept through the night, no distress observed/reported, care consult ordered/pending evaluation, med rec completed/pending provider's approval, VSS, behavior non concerning, labs completed/resulted, will continue to monitor.
--- NOTE | 2023-01-25 07:40 | HE.PHANOTE ---
RE METHADONE 125 MG FROM [facility], LAST DOSED 01/24 LEANA
--- NOTE | 2023-01-25 09:58 | PC.NURSE ---
pt pleasant and smiling during most interactions, medicated as ordered, methadone verified and given, nad, resting quietly in back room/couch, per CARE team pt will be a bed search
--- NOTE | 2023-01-25 13:28 | MHC.CARE ---
Pt seen by CARE team, meets inpatient level of care on section 12.
--- NOTE | 2023-01-25 15:51 | PC.NURSE ---
pt denies SI at this time. Pt moved to room 4 for pt comfort/TV access
[2023-01-25 20:44] VITALS: BP 103/56; PULSE 61; RESP 16; TEMP 36.5; O2SAT 99
[2023-01-26 06:18] VITALS: BP 88/60; PULSE 61; RESP 15; TEMP 36.4; O2SAT 98
--- NOTE | 2023-01-26 06:32 | PC.NURSE ---
Patient slept through the night, no distress observed/reported, behavior non concerning, Labs completed/resulted, medication compliant, disposition per care team is section 12 inpatient bed search, will continue to monitor.
[2023-01-26 07:26] VITALS: BP 102/62; PULSE 58; RESP 16; TEMP 36.6; O2SAT 98
[2023-01-26 18:50] VITALS: BP 107/77; PULSE 75; RESP 16; TEMP 37.1; O2SAT 99
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
--- NOTE | 2023-01-27 07:22 | PHA.MEDREC ---
Pharmacy Consult ? Medication Reconciliation Pharmacy has completed the medication reconciliation.Pharmacy has reviewed med rec done by sari.
[2023-01-27 08:00] VITALS: BP 94/60; PULSE 60; RESP 18; TEMP 36.6; O2SAT 98
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
[2023-01-27 20:15] VITALS: BP 108/55; PULSE 65; RESP 16; TEMP 36.6; O2SAT 97
[2023-01-28 08:00] VITALS: BP 127/89; PULSE 103; RESP 18; TEMP 36.6; O2SAT 99
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
[2023-01-28 20:10] VITALS: BP 115/70; PULSE 64; RESP 18; TEMP 36.4; O2SAT 97
[2023-01-29 09:13] VITALS: BP 93/62; PULSE 92; RESP 16; TEMP 36.5; O2SAT 98
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
== END 2023-01-29 11:16 | disposition home or self-care (01) | DRG 773 ==
LOC: HO.ED 01-25 07:32 → HO.PADLT16 01-26 22:24
PROVIDERS: Emergency Medicine; Admitting Provider Psychiatry & Neurology Psychiatry; Emergency Provider Emergency Medicine Emergency Medical Services; Visit Provider Psychiatry & Neurology Psychiatry
DX: F19.94 Other psychoactive substance use, unspecified with psychoactive substance-induced mood disorder (principal); F11.20 Opioid dependence, uncomplicated; R45.851 Suicidal ideations; E03.9 Hypothyroidism, unspecified; F41.9 Anxiety disorder, unspecified; I10 Essential (primary) hypertension; F14.20 Cocaine dependence, uncomplicated; Z20.822 Contact with and (suspected) exposure to COVID-19; Z87.891 Personal history of nicotine dependence; Z79.899 Other long term (current) drug therapy
CPT/HCPCS: 36415; 72190; 80053; 80061; 80143; 80179; 80307; 81003; 81025; 84443; 85025; 87635; 93005; 99285; S9485

== ENCOUNTER 2023-02-05 17:44 | Emergency (ER) | payer OTHER, SELFPAY ==
[2023-02-05 18:03] VITALS: BP 112/84; BP 126/89; PULSE 92; PULSE 94; RESP 18; TEMP 37; O2SAT 97; O2SAT 99; BMI 29.8
--- NOTE | 2023-02-05 18:03 | ED.GENADULT ---
HPI - General Adult General Chief complaint: General Medical Stated complaint: Substance Abuse Related Data Home Medications Medication Instructions Recorded Confirmed escitalopram oxalate 10 mg tablet 10 mg PO DAILY 01/24/23 01/24/23 risperidone 1 mg tablet 1 mg PO BEDTIME 01/24/23 01/24/23 methadone 10 mg/mL oral 125 mg PO DAILY 01/25/23 01/25/23 concentrate (Methadone Intensol) Previous Rx's Medication Instructions Recorded hydroxyzine HCl 25 mg tablet 25 mg PO Q6H PRN Anxiety 30 days 01/15/23 #60 tabs trazodone 100 mg tablet 100 mg PO BEDTIME 30 days #30 tabs 01/29/23 Allergies Allergy/AdvReac Type Severity Reaction Status Date / Time ibuprofen [Advil] AdvReac Unknown rash Verified 06/11/20 10:13 [facility] Past Medical History Medical History Anxiety Facial abscess Hypertension Hypothyroidism Right facial swelling Surgical History History of section History of cholecystectomy History of toe surgery History of tubal ligation Family History Family History Father Depression Mother Asthma Family/Other FH: mental illness Brother Alive and well Social History Social History Household Members: Other Household Members 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:: 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 apartment 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 Housing: Apartment Housing Other:: building Do you presently have visiting nurse or other home services: No Alcohol intake: never Patient Tobacco Use Status: Former Tobacco user e-Cigarette/Vaping Use: Former Use Second Hand Smoke Exposure: No Substance Use Type: Crack/Cocaine Advance Directives: No Advance Directives Information Provided: No service: No Sexual orientation: Straight/Heterosexual Physical Exam ED Vital Signs: BMI result Body Mass Index 29.8 Course Course Course Narrative: This is a rapid medical exam: Additional HPI, ROS, PE not included below will be deferred to primary provider. Patient is a 37-year-old female with history of cocaine use disorder, opioid use disorder, HTN, hypothyroidism presenting to the emergency department requesting assistance with substance use cessation. Used cocaine earlier today and walked into the police department requesting assistance. PD called 911 and patient was transported to the ED via ambulance. Ricoies any recent fevers but does report hot flashes. Denies any other physical complaints. Denies any thoughts of SI or HI. Discharge Plan Discharge Clinical Impression: Substance use disorder Patient Disposition: Elopement Prescriptions: No Action risperidone 1 mg tablet 1 mg PO BEDTIME escitalopram oxalate 10 mg tablet 10 mg PO DAILY methadone [Methadone Intensol] 10 mg/mL Concentrate 125 mg PO DAILY trazodone 100 mg Tablet 100 mg PO BEDTIME 30 Days Qty: 30 0RF hydroxyzine HCl 25 mg Tablet 25 mg PO Q6H PRN (Reason: Anxiety) 30 Days Qty: 60 0RF Interventions: ED Discharge Assessment Last Done: 02/05/23 23:25 Discharge Date/Time: 02/05/23 23:26
== END 2023-02-05 23:26 | disposition left against medical advice (07) ==
LOC: HO.ED 23:21
PROVIDERS: Emergency Provider Emergency Medicine
DX: F14.10 Cocaine abuse, uncomplicated (principal); Z87.891 Personal history of nicotine dependence; Z79.899 Other long term (current) drug therapy
CPT/HCPCS: 99282

== ENCOUNTER 2023-02-15 18:47 | Emergency (ER) | payer OTHER, SELFPAY ==
[2023-02-15 19:08] VITALS: BP 123/101; PULSE 115; RESP 17; TEMP 37.2; O2SAT 97; BMI 31.8
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
[2023-02-15 19:25] VITALS: BP 138/79; PULSE 104; RESP 17; TEMP 36.3; O2SAT 98
--- NOTE | 2023-02-15 19:31 | ECG_ITS ---
Test Reason : CRACK USE Blood Pressure : / mmHG Vent. Rate : 098 BPM Atrial Rate : 098 BPM P-R Int : 134 ms QRS Dur : 088 ms QT Int : 272 ms P-R-T Axes : 064 -14 042 degrees QTc Int : 347 ms Normal sinus rhythm Nonspecific T wave abnormality Abnormal ECG When compared with ECG of 26-JAN-2023 07:55, Vent. rate has increased BY 49 BPM Nonspecific T wave abnormality now evident in Lateral leads QT has shortened Referred By: Betsy Carson Electronically Signed By:GBARIELLA DELATORRE MD
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
--- NOTE | 2023-02-15 19:51 | PC.NURSE ---
fabricio found on pt during attempt to obtain urine specimen. pt changed over into hospital attire as per protocol, belongings stored in decon with security.
--- NOTE | 2023-02-15 20:41 | MHC.CARE ---
CARE Team met with the pt to discuss treatment options for her desire to go to detox for her crack/cocaine addiction. T/W informed her that [facility] would be a good place for her to call and try and get into. T/W asked if she wanted the recovery team to reach out to her tomorrow and she stated that she would like that. CARE Team will put it in the log to have recovery give the pt a call tomorrow at [phone].
[2023-02-15 21:24] LABS: MANUAL DIFF FLAG NO
[2023-02-15 21:25] LABS: Basophils Percent Auto 0.2 % (0-2); Eosinophils Absolute Auto 0.1 X10*3/uL (0.0-0.4); Eosinophils Percent Auto 0.9 % (0-4); Hematocrit 38.9 % (37.0-47.0); Imm Gran Abs Auto 0.02 X10*3/uL (0.00-0.03); Imm Gran Pct Auto 0.2 % (0.0-0.4); Lymphocytes Absolute Auto 3.8 X10*3/uL (1.2-4.9); Mean Corpuscular HGB Conc 33.4 g/dl (31.0-35.0); Mean Corpuscular Hemoglobin 29.6 pg (27.0-33.0); Mean Corpuscular Volume 88.6 fL (80.0-98.0); Mean Platelet Volume 8.5 fL (9.4-12.3); Monocytes Absolute Auto 0.8 X10*3/uL (0.1-1.2); Neutrophils Absolute Auto 4.6 x10*3/uL (2.0-8.3); Neutrophils Percent Auto 49.7 % (45-73); Platelet Count 218 X10*3/uL (160-400); Red Blood Count 4.39 X10*6/uL (4.20-5.50); Red Cell Distribution Width 12.8 % (11.0-16.0); White Blood Count 9.3 X10*3/uL (4.8-10.8)
--- NOTE | 2023-02-15 21:42 | PC.NURSE ---
Pt remains lying on stretcher, no acute medical or behavioral concerns at this time.
[2023-02-15 21:44] LABS: Alanine Aminotransferase 69 U/L (0-31); Albumin Level 3.9 g/dL (3.5-5.0); Alkaline Phosphatase 63 U/L (39-117); Anion Gap 11 (12-20); Aspartate Amino Transferase 43 U/L (5-31); Bilirubin Total 0.5 mg/dL (0.0-1.0); Blood Urea Nitrogen 12 mg/dL (9-16); Calcium 9.7 mg/dL (8.4-10.2); Carbon Dioxide 27 mmol/L (22-29); Chloride 106 mmol/L (96-108); Creatinine Clr Calc Pharmacy 85.1; Estimated Glomerular Filt Rate > 60; Ethanol < 10 mg/dL; Glucose Random 84 mg/dL (60-115); Potassium 3.7 mmol/L (3.3-5.1); Sodium 140 mmol/L (135-145); Total Protein 8.4 g/dL (6.5-8.0)
[2023-02-15 21:49] LABS: Acetaminophen LAB < 17 mcg/mL (<30); HCG Quantitative < 2 mIU/mL; Salicylate < 5.0 mg/dL (15-30)
--- NOTE | 2023-02-16 02:21 | PC.NURSE ---
Pt sleeping, easil yrousable, no acute medial or behavioral concerns at this time. Defering CIWA scale - pt denies ETOH use at any time, no WD symptoms noted.
[2023-02-16 02:26] VITALS: BP 103/55; PULSE 82; RESP 17; TEMP 36.8; O2SAT 96
--- NOTE | 2023-02-16 05:40 | PC.NURSE ---
pt awake, lying on stretcher, no acute medical or behavioral concners at this time. Pending Care team assessment.
[2023-02-16 07:58] VITALS: BP 114/63; PULSE 68; RESP 14; O2SAT 100
--- NOTE | 2023-02-16 08:00 | HE.PHANOTE ---
RE: METHADONE Pharmacy has recieved patients methadone verification form. Patient is confirmed to go to [facility], last dosed [id number]/23 at 125 mg
[2023-02-16 08:19] LABS: Appearance Urine Clear; Color Urine Yellow; Glucose Urine UA Negative (Negative); Leukocyte Esterase Urine Negative (Negative); Nitrite Urine Negative (Negative); PH 5.5 (5.0-9.0); Specific Gravity - Urine >= 1.030 (1.005-1.025); Urine Blood Negative (Negative); Urine Ketones Trace mg/dL (Negative); Urine Protein Trace mg/dL (Neg-Trace)
[2023-02-16 08:43] LABS: Amphetamine Screen Urine Not Detected (Not Detect); Barbiturates, Urine Not Detected (Not Detect); Benzodiazepines Screen Urine Not Detected (Not Detect); Cannabinoid Screen Urine Not Detected (Not Detect); Cocaine Screen Urine POSITIVE (Not Detect); Fentanyl, urine POSITIVE (Not Detect); Opiate Screen Urine Not Detected (Not Detect); Phencyclidine Screen Urine Not Detected (Not Detect)
[2023-02-16] MEDS: methADONE HCl 20 MG/2 ML ORAL.CONC 125 MG PO (08:53)
--- NOTE | 2023-02-16 10:33 | MHC.RECOVSUP ---
Met with pt in ED22H who is here for SHIRA. Pt reports taking 4 capsules of cocaine/heroin a day and a full needle of heroin and has been using for several years. Pt has no history of OD,MAT, or ATS but is currently interested in starting MAT and ATS at this time. Pt has no other questions or concerns at this time, ATS bed search in process.
--- NOTE | 2023-02-16 13:00 | PC.NURSE ---
pt axox4, VSS, respirations even and unlabored, skin warm and dry, color appropriate to ethnicity. ciwa 0. pt responding appropriately, requests foods. no si/hi per pt.
== END 2023-02-16 14:34 | disposition home or self-care (01) ==
PROVIDERS: Nurse Practitioner Family; Physician Assistant Medical; Emergency Provider Emergency Medicine; PCP Internal Medicine
DX: F11.20 Opioid dependence, uncomplicated (principal); F14.20 Cocaine dependence, uncomplicated; I10 Essential (primary) hypertension; Z79.899 Other long term (current) drug therapy
CPT/HCPCS: 36415; 80053; 80143; 80179; 80307; 81003; 84702; 85025; 93005; 99285

== ENCOUNTER → 2023-02-15 19:31 | Outpatient (BNV) | payer OTHER, SELFPAY | PROVIDERS: Emergency Provider Emergency Medicine; PCP Internal Medicine; Visit Provider Internal Medicine Cardiovascular Disease | DX: F14.90 Cocaine use, unspecified, uncomplicated (principal) | CPT/HCPCS: 93010 ==

== ENCOUNTER 2023-07-06 18:50 | Emergency (ER) | payer OTHER, SELFPAY ==
[2023-07-06 19:05] VITALS: BP 134/87; PULSE 93; RESP 18; TEMP 36.8; O2SAT 96; BMI 34.9
--- NOTE | 2023-07-06 19:12 | ED.GENADULT ---
HPI - General Adult General Chief complaint: ETOH/Substance Use Stated complaint: seeking detox Time Seen by Provider: 07/06/23 23:52 Source: patient Mode of arrival: ambulatory Limitations: no limitations History of Present Illness HPI narrative: 38 yo female with PMH of mood disorder, she is currently sniffing crack and heroin no IVDA she wants to go to detox. she is asking for her night meds she also reports dysuria and urinary odor. complaint: detox Onset (ago): day(s) Radiation: non-radiation Severity: mild Relieving factors: none Exacerbating factors: other (drug use) Associated symptoms: other (dysuria) Treatments prior to arrival: none Related Data Home Medications Medication Instructions Recorded Confirmed escitalopram oxalate 10 mg tablet 10 mg PO DAILY 01/24/23 07/07/23 risperidone 1 mg tablet 1 mg PO BEDTIME 01/24/23 07/07/23 methadone 10 mg/mL oral 160 mg PO DAILY 01/25/23 07/07/23 concentrate (Methadone Intensol) Previous Rx's Medication Instructions Recorded hydroxyzine HCl 25 mg tablet 25 mg PO Q6H PRN Anxiety 30 days 01/15/23 #60 tabs trazodone 100 mg tablet 100 mg PO BEDTIME 30 days #30 tabs 01/29/23 nitrofurantoin 100 mg PO BID #8 caps 07/07/23 monohydrate/macrocrystals 100 mg capsule (Macrobid) Allergies Allergy/AdvReac Type Severity Reaction Status Date / Time ibuprofen [Advil] AdvReac Unknown rash Verified 07/06/23 19:04 Review of Systems Review of Systems: Constitutional : No Fever, No Chills ENT/Mouth : No Ear Pain, No Nasal Congestion, No sore throat Eyes: No Eye Pain, No Swelling, No Redness Cardiovascular : No Chest Pain, No SOB Respiratory : No Cough, No Sputum, No Dyspnea Gastrointestinal : No Nausea, No Vomiting, No Diarrhea, No Hematochezia, No Melena Genitourinary : pos Dysuria, No Urinary Frequency, No Hematuria Musculoskeletal : No Myalgias Skin : No Skin Lesions, No rash Neuro : No Weakness, No Numbness, No Paresthesias, No Dizziness, No Headache Psych : positive Anxiety, positive Depression, no SI/HI All other systems reviewed and are negative COUNTS INCLUDE 234 BEDS AT THE [facility] Past Medical History Attestation statement: The following information was validated with the patient. 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 Housing: Apartment Housing Other:: building Do you presently have visiting nurse or other home services: No Alcohol intake: never Patient Tobacco Use Status: Former Tobacco user e-Cigarette/Vaping Use: Former Use Second Hand Smoke Exposure: No Substance Use Type: Crack/Cocaine Advance Directives: No Advance Directives Information Provided: Yes service: No Sexual orientation: Straight/Heterosexual Physical Exam ED Vital Signs: Vital Signs - 24 hr 07/06/23 19:05 07/07/23 09:22 07/07/23 13:27 Temperature 98.2 F 99.3 F 98.0 F Pulse Rate 93 72 69 Respiratory Rate 18 18 16 Blood Pressure 134/87 106/63 105/58 L Pulse Oximetry 96 99 97 Oxygen Delivery Method Room Air Room Air Room Air BMI result Body Mass Index 34.9 Appearance: Alert. Oriented X3. No acute distress. Eyes: Pupils equal, round and reactive to light. ENT: Pharynx normal. Neck: Normal inspection. Neck supple. CVS: Normal heart rate and rhythm. Pulses normal. Respiratory: No respiratory distress. Breath sounds normal. Abdomen: Soft and nontender. Back: moving well without issues Skin: Skin warm and dry. Normal skin color. Normal skin turgor. Extremities: No lower extremity edema. No calf ttp Neuro: Oriented X 3. No motor deficit. No sensory deficit. CN2-12 intact Course Course Course Narrative: Patient looking to detox from cocaine and opiates, last use 2 days ago, no recent injury or illness She does take methadone as well Lab s are ordered This rapid medical exam done in triage pending full evaluation by your provider Reevaluation(s) Reevaluation #1: Physician observation started at 1235am Patient placed in physician observation because the patient needed more time for recovery team to help with detox placement. At the time observation was started the patient's vitals were stable, patient is alert and oriented Neuro: nonfocal, CV RRR, Lungs clear Reevaluation #2: Physician observation continued, your able to find detox bed. Patient is agreeable to going to detox. Patient will be transferred at 8:00 p.m. tonight. Vital signs stable. Patient resting comfortably. Will continue to monitor. Time: 15:41 Medications Administered Generic Name Dose Route Start Last Admin Trade Name Freq PRN Reason Stop Dose Admin Nitrofurantoin Macrocrystals 100 mg 07/07/23 00:10 07/07/23 09:24 Nitrofurantoin Monohyd/M-Cryst 100 Mg Capsule PO 100 mg BID GIBSON Administration Discontinued Medications Generic Name Dose Route Start Last Admin Trade Name Freq PRN Reason Stop Dose Admin Methadone HCl 160 mg 07/07/23 11:17 07/07/23 11:26 Methadone Hcl 20 Mg/2 Ml Oral.Conc PO 07/07/23 11:18 160 mg ONCE ONE Administration Risperidone 1 mg 07/07/23 00:08 07/07/23 00:52 Risperidone 1 Mg Tablet PO 07/07/23 00:09 1 mg ONCE ONE Administration Trazodone HCl 100 mg 07/07/23 00:08 07/07/23 00:52 Trazodone Hcl 100 Mg Tablet PO 07/07/23 00:09 100 mg ONCE ONE Administration Medical Decision Making Medical Decision Making MDM Narrative: 38 yo female with PMH of substance abuse and mood disorder here with c/o wanting detox, atraumatic back pain but no IVDA - doubt epidural abscess and no b/b incontinence or saddle anesthesia. Will obtain labs, UA - start on macrobid if positive, CTNG testing, refer to addiction medicine Differential Diagnosis Differential Diagnoses: The differential diagnosis associated with the presentation includes UTI, STI, substance abuse Admission/Observation Consideration of admission/observation: Escalation of care including admission/observation considered observe until recovery team sees patient Consult Healthcare Provider Management of the patient was discussed with: Behavioral Health Provider Lab Data 07/06/23 19:32 07/06/23 19:32 Labs: Lab Results 07/06/23 07/06/23 Range/Units 19:31 19:32 WBC 7.8 (4.8-10.8) X10*3/uL RBC 4.64 (4.20-5.50) X10*6/uL Hgb 13.5 (12.0-16.0) g/dl Hct 39.6 (37.0-47.0) % MCV 85.3 (80.0-98.0) fL MCH 29.1 (27.0-33.0) pg MCHC 34.1 (31.0-35.0) g/dl RDW 12.9 (11.0-16.0) % Plt Count 234 (160-400) X10*3/uL MPV 8.4 L (9.4-12.3) fL Immature Gran % (Auto) 0.3 (0.0-0.4) % Neut % (Auto) 64.8 (45-73) % Lymph % (Auto) 27.0 (20-40) % [place] % (Auto) 7.2 (2-11) % Eos % (Auto) 0.4 (0-4) % Baso % (Auto) 0.3 (0-2) % Lymph # (Auto) 2.1 (1.2-4.9) X10*3/uL [place] # (Auto) 0.6 (0.1-1.2) X10*3/uL Eos # (Auto) 0.0 (0.0-0.4) X10*3/uL Baso # (Auto) 0.0 (0.0-0.2) X10*3/uL Abs Immat Gran (auto) 0.02 (0.00-0.03) X10*3/uL Absolute Neuts (auto) 5.1 (2.0-8.3) x10*3/uL Absolute Nucleated RBC 0.000 (0.0-0.012) X10*3/uL Nucleated RBC % (auto) 0.0 (0.0-0.2) /100WBC ESR 22 H (0-20) MM/HR Sodium 139 (135-145) mmol/L Potassium 3.7 (3.3-5.1) mmol/L Chloride 107 (96-108) mmol/L Carbon Dioxide 23 (22-29) mmol/L Anion Gap 13 (12-20) BUN 12 (9-16) mg/dL Creatinine 0.87 (0.5-1.4) mg/dL Estim Creat Clear Calc 89.5 Estimated GFR > 60 Random Glucose 103 (60-115) mg/dL Calcium 9.5 (8.4-10.2) mg/dL Total Bilirubin 0.4 (0.0-1.0) mg/dL Direct Bilirubin 0.2 (0.0-0.5) mg/dL AST 17 (5-31) U/L ALT 7 (0-31) U/L Alkaline Phosphatase 68 (39-117) U/L Total Protein 8.4 H (6.5-8.0) g/dL Albumin 4.1 (3.5-5.0) g/dL Urine Color Yellow Urine Appearance Cloudy Urine pH 6.0 (5.0-9.0) Ur Specific [place] 1.025 (1.005-1.025) Urine Protein Trace (Neg-Trace) mg/dL Urine Glucose (UA) Negative (Negative) mg/dL Urine Ketones Trace (Negative) mg/dL Urine Blood Negative (Negative) Urine Nitrite Positive H (Negative) Ur Leukocyte Esterase Small (1+) H (Negative) Urine RBC 6-10 H (0-2) /HPF Urine WBC 11-20 H (0-5) /HPF Ur Squamous Epith Cells 0-2 (0-2) /HPF Urine Bacteria 4+ (None Seen) Hyaline Casts 0-2 (0-2) /LPF Urine Test NEGATIVE (NEGATIVE) Urine Opiates Screen Not Detected (Not Detect) Urine Fentanyl Screen POSITIVE H (Not Detect) Ur Barbiturates Screen Not Detected (Not Detect) Ur Phencyclidine Scrn Not Detected (Not Detect) Ur Amphetamines Screen Not Detected (Not Detect) U Benzodiazepines Scrn Not Detected (Not Detect) Urine Cocaine Screen POSITIVE H (Not Detect) U Marijuana (THC) Screen Not Detected (Not Detect) Ethyl Alcohol < 10 mg/dL External Record Review External record reviewed: Inpatient record Social Determinants Patient?s care significantly limited by Social Determinants of Health including: Unemployment Discharge Plan Discharge Clinical Impression: Cocaine use disorder, moderate, dependence, Opioid use disorder, severe, on maintenance therapy, Acute UTI Patient Disposition: Home, Self-Care Additional Instructions: Take Macrobid twice daily for the next 4 days for UTI Go directly to detox at 8:00 pm as planned Follow-up with your primary doctor Return for new or worsening symptoms Prescriptions: New nitrofurantoin monohyd/m-cryst [Macrobid] 100 mg capsule 100 mg PO BID Qty: 8 0RF Rx Instructions: must administer with a meal/food No Action risperidone 1 mg tablet 1 mg PO BEDTIME escitalopram oxalate 10 mg tablet 10 mg PO DAILY methadone [Methadone Intensol] 10 mg/mL Concentrate 160 mg PO DAILY trazodone 100 mg Tablet 100 mg PO BEDTIME 30 Days Qty: 30 0RF hydroxyzine HCl 25 mg Tablet 25 mg PO Q6H PRN (Reason: Anxiety) 30 Days Qty: 60 0RF
--- NOTE | 2023-07-06 19:34 | MHC.EDTECH ---
Labs and a urine sample were obtained and sent to lab,patient brought back to waiting area.
[2023-07-06 19:39] LABS: MANUAL DIFF FLAG NO
[2023-07-06 19:41] LABS: Basophils Percent Auto 0.3 % (0-2); Eosinophils Percent Auto 0.4 % (0-4); Hematocrit 39.6 % (37.0-47.0); Hemoglobin 13.5 g/dl (12.0-16.0); Imm Gran Abs Auto 0.02 X10*3/uL (0.00-0.03); Imm Gran Pct Auto 0.3 % (0.0-0.4); Lymphocytes Absolute Auto 2.1 X10*3/uL (1.2-4.9); Mean Corpuscular HGB Conc 34.1 g/dl (31.0-35.0); Mean Corpuscular Hemoglobin 29.1 pg (27.0-33.0); Mean Corpuscular Volume 85.3 fL (80.0-98.0); Mean Platelet Volume 8.4 fL (9.4-12.3); Monocytes Absolute Auto 0.6 X10*3/uL (0.1-1.2); Monocytes Percent Auto 7.2 % (2-11); Neutrophils Absolute Auto 5.1 x10*3/uL (2.0-8.3); Neutrophils Percent Auto 64.8 % (45-73); Platelet Count 234 X10*3/uL (160-400); Red Blood Count 4.64 X10*6/uL (4.20-5.50); Red Cell Distribution Width 12.9 % (11.0-16.0); White Blood Count 7.8 X10*3/uL (4.8-10.8)
[2023-07-06 19:43] LABS: Appearance Urine Cloudy; Color Urine Yellow; Glucose Urine UA Negative (Negative); Leukocyte Esterase Urine Small (1+) (Negative); Nitrite Urine Positive (Negative); Specific Gravity - Urine 1.025 (1.005-1.025); UMIC TRIGGER UACC YES; Urine Blood Negative (Negative); Urine Ketones Trace mg/dL (Negative); Urine Protein Trace mg/dL (Neg-Trace)
[2023-07-06 19:45] LABS: UPreg QC Valid YES; Urine Pregnancy NEGATIVE (NEGATIVE)
[2023-07-06 19:48] LABS: Amphetamine Screen Urine Not Detected (Not Detect); Barbiturates, Urine Not Detected (Not Detect); Benzodiazepines Screen Urine Not Detected (Not Detect); Cannabinoid Screen Urine Not Detected (Not Detect); Cocaine Screen Urine POSITIVE (Not Detect); Fentanyl, urine POSITIVE (Not Detect); Opiate Screen Urine Not Detected (Not Detect); Phencyclidine Screen Urine Not Detected (Not Detect)
[2023-07-06 19:49] LABS: Bacteria Urine 4+ (None Seen); Hyaline Casts Urine 0-2 /LPF (0-2); Squamous Epithelial Cell Urine 0-2 /HPF (0-2); UACC Culture Trigger YES
[2023-07-06 19:55] LABS: Alanine Aminotransferase 7 U/L (0-31); Albumin Level 4.1 g/dL (3.5-5.0); Alkaline Phosphatase 68 U/L (39-117); Anion Gap 13 (12-20); Aspartate Amino Transferase 17 U/L (5-31); Bilirubin Direct 0.2 mg/dL (0.0-0.5); Bilirubin Total 0.4 mg/dL (0.0-1.0); Blood Urea Nitrogen 12 mg/dL (9-16); Calcium 9.5 mg/dL (8.4-10.2); Carbon Dioxide 23 mmol/L (22-29); Chloride 107 mmol/L (96-108); Creatinine Clr Calc Pharmacy 89.5; Estimated Glomerular Filt Rate > 60; Ethanol < 10 mg/dL; Glucose Random 103 mg/dL (60-115); Potassium 3.7 mmol/L (3.3-5.1); Sodium 139 mmol/L (135-145); Total Protein 8.4 g/dL (6.5-8.0)
[2023-07-07 00:33] LABS: Erythrocyte Sedimentation Rate 22 MM/HR (0-20)
[2023-07-07] MEDS: traZODone HCL 100 MG TABLET PO (00:52)
[2023-07-07] MEDS: risperiDONE 1 MG TABLET PO (00:52)
[2023-07-07] MEDS: Nitrofurantoin Monohyd/M-Cryst 100 MG CAPSULE PO ×3 (00:52→19:13)
[2023-07-07 09:22] VITALS: BP 106/63; PULSE 72; RESP 18; TEMP 37.4; O2SAT 99
--- NOTE | 2023-07-07 09:38 | PC.NURSE ---
pt was sleeping, but easily arousable, skin appropriate for ethnicity, respirations even and unlabored, pt is reporting of a headache pain at 6/10, pt also states wanting detox for heroin and cocaine, pt denies using alcohol also states that she is on methadon at the [facility] clinic at [place] and is on 160mg and was at the clinic 2 days ago. Pt denies si, pt was changed over do to substance use, and pt willingly gave up a knife and paraphernalia-which was taken by security, belongings secured in locker #8
--- NOTE | 2023-07-07 11:16 | HE.PHANOTE ---
RE: METHADONE patients methadone verification form has been received. Patients dose confirmed to be 160 mg, last doses on 07/04/23 @0900 and given 2 take home doses for 07/05 and 07/06
--- NOTE | 2023-07-07 11:25 | MHC.RECOVSUP ---
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 Original Note: Met with pt in ED18H who is here for SHIRA. Pt informs she has been using about 20 bags of cocaine and 6 capsules of crack a day orally. Pt has been to treatment about 3 months ago in [place] and is currently looking for ATS. Bed search in proccess.
[2023-07-07] MEDS: methADONE HCl 20 MG/2 ML ORAL.CONC 160 MG PO (11:26)
--- NOTE | 2023-07-07 11:31 | PC.NURSE ---
pt medicated per MAR with 160mg of methadone. pt rousable to touch stimuli, answering this nurses questions appropriately.
--- NOTE | 2023-07-07 12:28 | PHA.MEDREC ---
Pharmacy Consult ? Medication Reconciliation Pharmacy has completed the medication reconciliation. Spoke to patient and confirmed medication list.
[2023-07-07 13:27] VITALS: BP 105/58; PULSE 69; RESP 16; TEMP 36.7; O2SAT 97
== END 2023-07-07 20:07 | disposition home or self-care (01) ==
PROVIDERS: Physician Assistant Medical; Emergency Provider Emergency Medicine
DX: F14.20 Cocaine dependence, uncomplicated (principal); F11.20 Opioid dependence, uncomplicated; N39.0 Urinary tract infection, site not specified; F19.10 Other psychoactive substance abuse, uncomplicated; I10 Essential (primary) hypertension; Z79.899 Other long term (current) drug therapy
CPT/HCPCS: 36415; 80048; 80076; 80307; 81001; 81025; 85025; 85652; 87086; 87088; 87186; 99284

== ENCOUNTER 2023-07-24 16:47 | Emergency (ER) | payer OTHER, SELFPAY ==
[2023-07-24 18:21] VITALS: BP 133/88; PULSE 121; RESP 16; TEMP 36.9; O2SAT 98; BMI 32.9
[2023-07-24 18:49] LABS: Appearance Urine Cloudy; Color Urine Dark Yellow; Glucose Urine UA Negative (Negative); Leukocyte Esterase Urine Small (1+) (Negative); Nitrite Urine Positive (Negative); PH 5.5 (5.0-9.0); Specific Gravity - Urine 1.025 (1.005-1.025); UMIC TRIGGER UACC YES; Urine Blood Small (1+) (Negative); Urine Ketones Trace mg/dL (Negative); Urine Protein Trace mg/dL (Neg-Trace)
[2023-07-24 18:55] LABS: Amphetamine Screen Urine Not Detected (Not Detect); Barbiturates, Urine Not Detected (Not Detect); Benzodiazepines Screen Urine Not Detected (Not Detect); Cannabinoid Screen Urine Not Detected (Not Detect); Cocaine Screen Urine POSITIVE (Not Detect); Fentanyl, urine POSITIVE (Not Detect); Opiate Screen Urine Not Detected (Not Detect); Phencyclidine Screen Urine Not Detected (Not Detect)
[2023-07-24 19:01] LABS: Bacteria Urine 4+ (None Seen); RBC Urine 0-2 /HPF (0-2); UACC Culture Trigger YES
[2023-07-24 19:02] LABS: Alanine Aminotransferase 7 U/L (0-31); Albumin Level 4.3 g/dL (3.5-5.0); Alkaline Phosphatase 77 U/L (39-117); Anion Gap 14 (12-20); Aspartate Amino Transferase 16 U/L (5-31); Bilirubin Total 0.3 mg/dL (0.0-1.0); Blood Urea Nitrogen 13 mg/dL (9-16); Calcium 9.6 mg/dL (8.4-10.2); Carbon Dioxide 20 mmol/L (22-29); Chloride 108 mmol/L (96-108); Creatinine Clr Calc Pharmacy 76.2; Estimated Glomerular Filt Rate > 60; Glucose Random 102 mg/dL (60-115); Sodium 138 mmol/L (135-145); Total Protein 8.7 g/dL (6.5-8.0)
[2023-07-24 19:09] LABS: Basophils Percent Auto 0.1 % (0-2); Hematocrit 41.5 % (37.0-47.0); Hemoglobin 14.2 g/dl (12.0-16.0); Imm Gran Abs Auto 0.05 X10*3/uL (0.00-0.03); Imm Gran Pct Auto 0.4 % (0.0-0.4); Lymphocytes Absolute Auto 5.1 X10*3/uL (1.2-4.9); Lymphocytes Percent Auto 38.1 % (20-40); MANUAL DIFF FLAG SCAN; Mean Corpuscular HGB Conc 34.2 g/dl (31.0-35.0); Mean Corpuscular Hemoglobin 28.6 pg (27.0-33.0); Mean Corpuscular Volume 83.5 fL (80.0-98.0); Mean Platelet Volume 8.6 fL (9.4-12.3); Monocytes Absolute Auto 0.7 X10*3/uL (0.1-1.2); Neutrophils Absolute Auto 7.5 x10*3/uL (2.0-8.3); Neutrophils Percent Auto 56.4 % (45-73); Platelet Count 271 X10*3/uL (160-400); Red Blood Count 4.97 X10*6/uL (4.20-5.50); Red Cell Distribution Width 12.7 % (11.0-16.0); SCAN SMEAR FLAG 1; White Blood Count 13.3 X10*3/uL (4.8-10.8)
[2023-07-24 19:29] LABS: SLIDE REVIEW VERIFIED
[2023-07-25 00:31] VITALS: BP 112/76; PULSE 84; RESP 16; TEMP 36.8; O2SAT 97
--- NOTE | 2023-07-25 00:31 | ED_ITS ---
HPI - General Adult General Chief complaint: ETOH/Substance Use Stated complaint: detox Time Seen by Provider: 07/25/23 00:31 Source: patient and RN notes reviewed Limitations: no limitations History of Present Illness HPI narrative: 38-year-old female has a history of polysubstance use, currently on methadone 160, presents for evaluation requesting detox, last dose yesterday July 24. Patient states she uses heroin/fentanyl daily, approximately 3 bundles, sniffing. In addition she uses crack cocaine, smoking daily. Her last use was yesterday, July 24. She denies any alcohol use. She denies any suicidal or homicidal ideation. She denies any psychiatric complaints. She does report mild dysuria which has been going on for the past few days but otherwise has no physical complaints. No abdominal pain. No vaginal discharge bleeding or spotting. Related Data Previous Rx's Medication Instructions Recorded cephalexin 500 mg capsule 500 mg PO QID 7 days #28 caps 07/25/23 Allergies Allergy/AdvReac Type Severity Reaction Status Date / Time No Known Allergies Allergy Verified 07/24/23 18:21 Review of Systems 2 Constitutional: Constitutional: Denies headache(s) ENT: Denies headache(s) Cardiovascular: Cardiovascular: Denies chest pain Respiratory: Respiratory: Denies no additional respiratory complaints Neurologic: Denies headache(s) [facility] Social History Social History Alcohol intake: current Alcohol intake frequency: 3 or more drinks per day Smoked in Last 30 Days: Yes Use of substances other than those prescribed or required for medical reasons: Yes Substance Use Type: Crack/Cocaine and Opiates Advance Directives: No Advance Directives Information Provided: Yes Physical Exam ED Vital Signs: Vital Signs - 24 hr 07/24/23 18:21 07/25/23 00:31 07/25/23 05:58 Temperature 98.5 F 98.3 F 97.9 F Pulse Rate 121 H 84 50 Respiratory Rate 16 16 16 Blood Pressure 133/88 112/76 98/51 L Pulse Oximetry 98 97 97 Oxygen Delivery Method Room Air Room Air Room Air BMI result Body Mass Index 32.9 Const General: comfortable, alert and awake Eyes Pupils: Equal, round and reactive pupils present Resp Auscultation: clear to auscultation bilaterally Cardio Rate: regular rate Rhythm: regular rhythm GI Other: Abdomen is soft and nontender throughout. No suprapubic tenderness. No CVAT. No peritoneal signs. Neuro Cranial nerves: Yes Equal, round and reactive pupils present Course Reevaluation(s) Reevaluation #1: Patient resting comfortably at this time without any overt withdrawal; COWS is 4. Patient signed out to Dr. Nash in stable condition awaiting care team evaluation for assistance for detox placement. Time: 01:55 Reevaluation #2: Spoke with Jessenia Dukes from detox who states that [facility] has a bed for her. Jessenia has arranged a lyft for the patient. Patient to be discharged to [facility]. Time: 11:52 Medications Administered Discontinued Medications Generic Name Dose Route Start Last Admin Trade Name Freq PRN Reason Stop Dose Admin Cephalexin HCl 500 mg 07/25/23 00:49 07/25/23 04:18 Cephalexin 500 Mg Capsule PO 07/25/23 00:50 500 mg ONCE ONE Administration Naloxone HCl 8 mg 07/25/23 11:47 07/25/23 12:05 Naloxone Hcl Nasal Take Home 4 Mg [place] NOSTRILALT 07/25/23 11:48 8 mg ONCE ONE Administration Medical Decision Making Medical Decision Making [facility] Narrative: 38-year-old female with a history of polysubstance use requesting detox. Despite compliance with her with the dome she continues to use. She does endorse that she is using less than she has in the past but states that she wants to be done with all of it. Will have care team assist with possible detox placement. Patient's urine consistent with UTI combined with symptoms, will treat, 1st dose of Keflex given now. No obvious withdrawal at this time. Differential Diagnosis Differential Diagnoses: The differential diagnosis associated with the presentation includes Substance use disorder Polysubstance use UTI Opioid withdrawal Lab Data [facility] Lab Attestation statement: I reviewed the patient's lab results. 07/24/23 18:43 07/24/23 18:43 Labs: Lab Results 07/24/23 07/25/23 Range/Units 18:43 02:03 WBC 13.3 H (4.8-10.8) X10*3/uL RBC 4.97 (4.20-5.50) X10*6/uL Hgb 14.2 (12.0-16.0) g/dl Hct 41.5 (37.0-47.0) % MCV 83.5 (80.0-98.0) fL MCH 28.6 (27.0-33.0) pg MCHC 34.2 (31.0-35.0) g/dl RDW 12.7 (11.0-16.0) % Plt Count 271 (160-400) X10*3/uL MPV 8.6 L (9.4-12.3) fL Immature Gran % (Auto) 0.4 (0.0-0.4) % Neut % (Auto) 56.4 (45-73) % Lymph % (Auto) 38.1 (20-40) % [place] % (Auto) 5.0 (2-11) % Eos % (Auto) 0.0 (0-4) % Baso % (Auto) 0.1 (0-2) % Lymph # (Auto) 5.1 H (1.2-4.9) X10*3/uL [place] # (Auto) 0.7 (0.1-1.2) X10*3/uL Eos # (Auto) 0.0 (0.0-0.4) X10*3/uL Baso # (Auto) 0.0 (0.0-0.2) X10*3/uL Abs Immat Gran (auto) 0.05 H (0.00-0.03) X10*3/uL Absolute Neuts (auto) 7.5 (2.0-8.3) x10*3/uL Absolute Nucleated RBC 0.000 (0.0-0.012) X10*3/uL Nucleated RBC % (auto) 0.0 (0.0-0.2) /100WBC Smear Tech's Comments VERIFIED Sodium 138 (135-145) mmol/L Potassium 4.0 (3.3-5.1) mmol/L Chloride 108 (96-108) mmol/L Carbon Dioxide 20 L (22-29) mmol/L Anion Gap 14 (12-20) BUN 13 (9-16) mg/dL Creatinine 0.99 (0.5-1.4) mg/dL Estim Creat Clear Calc 76.2 Estimated GFR > 60 Random Glucose 102 (60-115) mg/dL Calcium 9.6 (8.4-10.2) mg/dL Total Bilirubin 0.3 (0.0-1.0) mg/dL AST 16 (5-31) U/L ALT 7 (0-31) U/L Alkaline Phosphatase 77 (39-117) U/L Total Protein 8.7 H (6.5-8.0) g/dL Albumin 4.3 (3.5-5.0) g/dL Urine Color Dark Yellow Urine Appearance Cloudy Urine pH 5.5 (5.0-9.0) Ur Specific [place] 1.025 (1.005-1.025) Urine Protein Trace (Neg-Trace) mg/dL Urine Glucose (UA) Negative (Negative) mg/dL Urine Ketones Trace (Negative) mg/dL Urine Blood Small (1+) H (Negative) Urine Nitrite Positive H (Negative) Ur Leukocyte Esterase Small (1+) H (Negative) Urine RBC 0-2 (0-2) /HPF Urine WBC 6-10 H (0-5) /HPF Ur Squamous Epith Cells 6-10 (0-2) /HPF Urine Bacteria 4+ (None Seen) Hyaline Casts 3-5 (0-2) /LPF Urine Opiates Screen Not Detected (Not Detect) Urine Fentanyl Screen POSITIVE H (Not Detect) Ur Barbiturates Screen Not Detected (Not Detect) Ur Phencyclidine Scrn Not Detected (Not Detect) Ur Amphetamines Screen Not Detected (Not Detect) U Benzodiazepines Scrn Not Detected (Not Detect) Urine Cocaine Screen POSITIVE H (Not Detect) U Marijuana (THC) Screen Not Detected (Not Detect) COVID-19 (ERIKA) Negative (Negative) COVID-19 Clin Com See Note Social Determinants Patient?s care significantly limited by Social Determinants of Health including: Alcoholism and drug addiction in family and Unemployment Discharge Plan Discharge Clinical Impression: Crack cocaine use, Opioid use disorder Urinary tract infection Qualifiers: Urinary tract infection type: acute cystitis Hematuria presence: without hematuria Qualified Code(s): N30.00 - Acute cystitis without hematuria Patient Disposition: Home, Self-Care Instructions: Urinary Tract Infection in Women (DC), Cocaine Abuse (ED), Opioid Use Disorder (ED) Additional Instructions: Keflex as directed for urinary tract infection. Finish all antibiotics. Follow-up with your primary care provider. Call this week to schedule a follow- up appointment. Return to the emergency department if you have any worsening of symptoms, or any concerns. Get well soon! Prescriptions: New cephalexin 500 mg capsule 500 mg PO QID 7 Days Qty: 28 0RF
[2023-07-25 02:30] LABS: COVID-19 Test Negative (Negative); IDNOW Serial# BCCEAD1C
[2023-07-25] MEDS: cephALEXin 500 MG CAPSULE PO (04:18)
[2023-07-25 05:58] VITALS: BP 98/51; PULSE 50; RESP 16; TEMP 36.6; O2SAT 97
--- NOTE | 2023-07-25 08:16 | MHC.RECOVRN ---
Pts referral sent to [facility]. Awaiting reply. RN aware.
--- NOTE | 2023-07-25 10:44 | MHC.RECOVRN ---
Pt accepted for admission to [facility] pending phone screen. Awaiting call from Ayana, drug abuse program coordinator.
--- NOTE | 2023-07-25 11:45 | MHC.RECOVRN ---
Pt accepted to [facility], will be transported via Lyft.
[2023-07-25] MEDS: Naloxone HCl Nasal TAKE HOME 4 MG SPRAY 8 MG NOSTRILALT (12:05)
== END 2023-07-25 12:15 | disposition home or self-care (01) ==
PROVIDERS: Physician Assistant; Emergency Provider Emergency Medicine
DX: F14.10 Cocaine abuse, uncomplicated (principal); F11.10 Opioid abuse, uncomplicated; N30.00 Acute cystitis without hematuria; Z79.899 Other long term (current) drug therapy; Z11.52 Encounter for screening for COVID-19; Z20.822 Contact with and (suspected) exposure to COVID-19
CPT/HCPCS: 36415; 80053; 80307; 81001; 85025; 87086; 87635; 99284

== ENCOUNTER 2024-08-23 09:02 | Outpatient (REF) | payer OTHER, SELFPAY ==
--- OUTSIDE RECORDS SUMMARY | 2024-08-23 09:26 | XMS_ITS | Encounter Summary ---
Author Organization [employer] Address [address] [place] [address] Care Team Providers Care Shirt Sorter Name Role Phone Unavailable Primary Care Provider Unavailabl e Reason for Visit * Reason Onset Date Comments Appointment Request 10/13/2023 Encounter Details Date Type Department Care Team (Late st Contact Info) Description 10/13/2023 Telephone [facility] MEDICINE [address] [place] [address] Joss Vines MD [address] [place], [place] [phone] Appointment Request Social History Tobacco Use Types Packs/Day Years Used Date Smoking Tobacco: Former Cigarettes 0.3 0.5 Passive Smoke Exposure: Past Smokeless Tobacco: Former Alcohol Use Standard Drinks/Week Comments Defer 0 (1 standard drink = 0.6 oz pur e alcohol) Comments Unknown Sex and Gender Information Value Date Recorded Sex Assigned at Female 05/26/2022 10:14 AM EDT Legal Sex Female 10:14 AM EDT Gender Identity Female 07/22/2022 9:20 AM EST Sexual Orientation Choose not to disclose 2022 10:56 AM EDT documented as of this encounter Miscellaneous Notes * Telephone Encounter - Francisca Fleming - 10/13/2023 10:11 AM EDT Tc from pt requesting new patient appt, address and phone confirmed. documented in this encounter Plan of Treatment Not on file documented as of this encounter Visit Diagnoses Not on filedocumented in this encounter
--- OUTSIDE RECORDS SUMMARY | 2024-08-23 09:26 | XMS_ITS | Clinical Summary ---
Author Organization [employer] Address [address] [facility] [address] [place] [address] Care Team Providers Care Summer Internship Name Role Phone Unavailable Primary Care Provider Unavailabl e Allergies No known active allergies Medications No known medications Active Problems Problem Noted Date Diagnosed Date Dental abscess 04/14/2023 Dental caries 04/14/2023 Immunizations Name Administration Dates Next Due Moderna Covid-19 Vaccine 6+ Bivalent 07/22/2022 Social History Tobacco Use Types Packs/Day Years Used Date Smoking Tobacco: Former Cigarettes 0.3 0.5 Passive Smoke Exposure: Past Smokeless Tobacco: Former Tobacco Cessation:Counseling Given: No Alcohol Use Standard Drinks/Week Comments Defer 0 (1 standard drink = 0.6 oz pur e alcohol) Comments Unknown Sex and Gender Information Value Date Recorded Sex Assigned at Female 05/26/2022 10:14 AM EDT Legal Sex Female 10:14 AM EDT Gender Identity Female 07/22/2022 9:20 AM EST Sexual Orientation Choose not to disclose 2022 10:56 AM EDT Last Filed Vital Signs Vital Sign Reading Time Taken Comments Blood Pressure 122/82 04/14/2023 11:42 AM EDT Pulse - - Temperature - - Respiratory Rate - - Oxygen Saturation - - Inhaled Oxygen Concentration - - Weight - - Height - - Body Mass Index - - Plan of Treatment Health Maintenance Due Date Last Done Comments Dental Oral Exam 1985 Dental Prophylaxis 1985 Dental X-Ray: Bitewings 1985 Depression Screening 1985 HIV Screening 1985 SDOH Screening 1985 Alcohol/Substance Use Screening 1997 Family Planning (PISQ) 2000 Hepatitis C Screening 2003 Hepatitis B Vaccines (1 of 3 - 19+ 3-dose series) 2004 Pap Smear 2006 Cervical Cancer Screening 2015 HPV/Cotest 2015 DTaP/Tdap/Td Vaccines (2 - T d or Tdap) 12/17/2021 12/18/2011 COVID-19 Vaccine (4 - 2023-2 5 season) 2024 07/22/2022, 07/02/2021, 12/21/2020 Influenza Vaccine (#1) 2024 08/13/2018 Tobacco Screening 04/14/2024 04/14/2023 Dental X-Ray: Full Mouth 04/15/2026 04/14/2023 Zoster Vaccines (1 of 2) 2035 RSV Patients and Patients Aged 60 years or older (1 - 1-dose 75+ series) 2060 HIB Vaccines Aged Out No longer eligi ble based on patient's age to complete this topic HPV Vaccines Aged Out No longer eligi ble based on patient's age to complete this topic Hepatitis A Vaccines Aged Out No long er eligible based on patient's age to complete this topic IPV Vaccines Aged Out No longer eligi ble based on patient's age to complete this topic Meningococcal Vaccine Aged Out No breanna wei eligible based on patient's age to complete this topic Pneumococcal Vaccine: Pediatrics (0 to 5 Years) and At-Risk Patients (6 to 64 Years) Aged Out No longer eligible b ased on patient's age to complete this topic RSV under 20 months Aged Out No longe r eligible based on patient's age to complete this topic Rotavirus Vaccines Aged Out No longer eligible based on patient's age to complete this topic Procedures Procedure Name Priority Date/Time Associated Diagnosis Comments PANORAMIC RADIOGRAPHIC IMAGE Routine 04/14/2023 11:30 AM EDT from Last 3 Months or Most Recently Relevant to Health Maintenance [place] [address] [place] [address] [facility] STAND ADULT
--- OUTSIDE RECORDS SUMMARY | 2024-08-23 09:26 | XMS_ITS | Encounter Summary ---
Author Organization [employer] Address [address] [facility] [address] [place] [address] Care Team Providers Care Test Preparation Tutor Name Role Phone Unavailable Primary Care Provider Unavailabl e Reason for Visit * Reason Onset Date Comments appt status 09/15/2023 Encounter Details Date Type Department Care Team (Late st Contact Info) Description 09/15/2023 Telephone [facility] [address], [place] [phone] Alexandru Whitehead DDS [address], [place] [phone] appt status Social History Tobacco Use Types Packs/Day Years [...] encounter Miscellaneous Notes * Telephone Encounter - Jenny Sheriff - 09/15/2023 9:34 AM EST Patient called in to check in on status of appt. Patient informed that appt has been requested. Patient is concerned because her phone number changed and unsure if she received a call. Phone number has been updated. documented in this encounter Plan of Treatment Not on file documented as of this encounter Visit Diagnoses Not on filedocumented in this encounter
[2024-08-23 11:42] LABS: Estimated Average Glucose 91 mg/dL; Hemoglobin A1C 97.6034 umol/L; Hemoglobin A1c % 4.8 % (<6.0); Total Hemoglobin (HGBA1C) 3389.0162 umol/L
[2024-08-23 11:47] LABS: Cholesterol 160 mg/dL (<200); Glucose Fasting 80 mg/dL (60-99); HDL Cholesterol 37 mg/dL (>40); LDL Cholesterol Calculated 76 mg/dL (<100); Triglycerides 235 mg/dL (<150)
[2024-08-23 12:06] LABS: TSH reflex Free T4 2.04 uIU/mL (0.32-4.0)
== END 2024-08-23 09:03 | disposition home or self-care (01) ==
LOC: HO.HHCL 09:02
PROVIDERS: Visit Provider Nurse Practitioner Psychiatric/Mental Health
DX: Z79.899 Other long term (current) drug therapy (principal)
CPT/HCPCS: 36415; 80061; 82947; 83036; 84443

== ENCOUNTER 2025-02-28 08:29 | Emergency (ER) | payer OTHER, SELFPAY ==
--- NOTE | ~2025-02-28 | XR_ITS ---
EXAMINATION: XR CHEST CLINICAL INFORMATION: CP COMPARISON: None available. TECHNIQUE: 2 views of the chest were obtained. FINDINGS: The cardiac, hilar, and mediastinal contours are normal. The lungs are clear bilaterally. There is no pneumothorax or pleural effusion. There is no focal osseous or soft tissue abnormality. XR/XR chest 2V IMPRESSION: No active pulmonary disease. Electronically signed by: Sudhakar Aldrich MD 02/28/2025 08:50 AM EDT
[2025-02-28 08:32] VITALS: BP 138/76; PULSE 94; RESP 16; TEMP 36.4; O2SAT 96; BMI 39.1
--- NOTE | 2025-02-28 08:34 | ED.GENADULT ---
HPI - General Adult General Chief complaint: General Medical Stated complaint: Heartburn Time Seen by Provider: 02/28/25 11:08 Source: patient, family and old records reviewed Mode of arrival: ambulatory Limitations: no limitations History of Present Illness ED Provider: VIANCA PRO narrative: 39 yo female with PMH of hypothyroidism, HTN here with c/o 1 month of burning in the throat when she lays down at night, goes from throat to top of stomach. She also notes it hurts to swallow food and liquids. She was taking motrin for it but it stopped. She denies GIB symptoms, she has no abdominal pain, no vomiting or fevers. She has not tried any OTC meds for acid. MD complaint: heartburn Onset (ago): month(s) (1) Location: mouth, chest and abdomen Radiation: non-radiation Severity: moderate Quality: burning Pain Consistency: constant Relieving factors: none Exacerbating factors: eating Associated symptoms: denies other symptoms Treatments prior to arrival: none Related Data Home Medications ?Medication ?Instructions ?Recorded ?Confirmed escitalopram oxalate 10 mg tablet 10 mg PO DAILY 01/24/23 07/07/23 risperidone 1 mg tablet 1 mg PO BEDTIME 01/24/23 07/07/23 methadone 10 mg/mL oral 160 mg PO DAILY 01/25/23 07/07/23 concentrate (Methadone Intensol) Previous Rx's ?Medication ?Instructions ?Recorded hydroxyzine HCl 25 mg tablet 25 mg PO Q6H PRN Anxiety 30 days 01/15/23 #60 tabs trazodone 100 mg tablet 100 mg PO BEDTIME 30 days #30 tabs 01/29/23 nitrofurantoin 100 mg PO BID #8 caps 07/07/23 monohydrate/macrocrystals 100 mg capsule (Macrobid) cephalexin 500 mg capsule 500 mg PO QID 7 days #28 caps 07/25/23 omeprazole 40 mg capsule,delayed 40 mg PO DAILY #14 caps 02/28/25 release sucralfate 100 mg/mL oral 10 ml PO BID 7 days #140 mL 02/28/25 suspension (Carafate) Allergies Allergy/AdvReac Type Severity Reaction Status Date / Time ibuprofen (Advil) AdvReac Unknown rash Verified 02/28/25 08:32 Review of Systems Review of Systems: Constitutional : No Fever, No Chills, No Fatigue ENT/Mouth : pos sore throat, No Rhinorrhea Eyes: No Eye Pain, No Swelling, No Redness Cardiovascular : No Chest Pain, No SOB, No Dyspnea on Exertion Respiratory : No Cough, No Sputum Gastrointestinal : No Nausea, No Vomiting, No Diarrhea, No abdominal Pain Genitourinary : No Dysuria, No Urinary Frequency, No Hematuria, Musculoskeletal : No joint pain, No Myalgias, No Joint Swelling Skin : No Skin Lesions, No rash Neuro : No Weakness, No Numbness, No Dizziness, no Headache All other systems reviewed and are negative [facility] Past Medical History Attestation statement: The following information was validated with the patient. 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 Housing: Apartment Housing Other:: building Do you presently have visiting nurse or other home services: No Alcohol intake: current Alcohol intake frequency: 3 or more drinks per day Patient Tobacco Use Status: Former Tobacco user e-Cigarette/Vaping Use: Former Use Second Hand Smoke Exposure: No Substance Use Type: Crack/Cocaine and Opiates Advance Directives: No Advance Directives Information Provided: Yes service: No Sexual orientation: Straight/Heterosexual Physical Exam ED Vital Signs: Vital Signs - 24 hr 02/28/25 08:32 Temperature 97.6 F Pulse Rate 94 Respiratory Rate 16 Blood Pressure 138/76 Pulse Oximetry 96 Oxygen Delivery Method Room Air BMI result Body Mass Index 39.1 Appearance: Alert. Oriented X3. No acute distress. Eyes: Pupils equal, round and reactive to light. ENT: Pharynx normal. Neck: Normal inspection. Neck supple. CVS: Normal heart rate and rhythm. Pulses normal. Respiratory: No respiratory distress. Breath sounds normal. Abdomen: Soft and nontender. Skin: Skin warm and dry. Normal skin color. Normal skin turgor. Extremities: No lower extremity edema. No calf ttp Neuro: Oriented X 3. No motor deficit. No sensory deficit. CN2-12 intact Course Course Course Narrative: This is an RME: Additional HPI, ROS, PE not included below will be deferred to primary provider. RME assessment and note performed by: Tahira Zuluaga PA-C This is a [id number]-female, with a hx of hypothyroidism, who presents to the ER with complaints of sore throat and chest pain x 1 month. Has been taking motrin for her symptoms. Plan: Labs, EKG, cxr Reevaluation(s) Reevaluation #1: qtc slightly prolonged will start on IV mag and rechecked Medications Administered Discontinued Medications Generic Name Dose Route Start Last Admin Trade Name Freq PRN Reason Stop Dose Admin Al Hydroxide/Mg Hydroxide 15 ml 02/28/25 11:35 02/28/25 11:59 Magnesium Hydrox/Alum Hydrox 30 Ml Oral.[place] PO 02/28/25 11:36 15 ml ONCE ONE Administration Magnesium Sulfate 2 gm in 50 mls @ 25 mls/hr 02/28/25 12:06 02/28/25 12:24 Magnesium Sulfate/H2o IV 02/28/25 14:05 25 mls/hr ONCE ONE Administration Lidocaine HCl 15 ml 02/28/25 11:35 02/28/25 11:59 Lidocaine Hcl Viscous 2 % 15 Ml Solution MUCOUS MEM 02/28/25 11:36 15 ml ONCE ONE Administration Omeprazole 20 mg 02/28/25 11:35 02/28/25 11:59 Omeprazole 20 Mg Capsule. PO 02/28/25 11:36 20 mg ONCE ONE Administration Medical Decision Making Medical Decision Making [facility] Narrative: 39 yo female with PMH of hypothyroidism, HTN here with c/o heartburn symptoms x 1 month she will get labs, GI cocktail and start on PPI. I suspect her EKG is abnormal due to lyte issue her symptoms x 1 month are not consistent with ACS. Will need PPI and GI referral at home. Abdomen is benign. Differential Diagnosis Differential Diagnoses: The differential diagnosis associated with the presentation includes PUD, gastritis, GERD Admission/Observation Consideration of admission/observation: Escalation of care including admission/observation considered nonspecific EKG changes but no CP and trop negative with symptoms x 1 month EKG improved with magnesium Lab Data [facility] Lab Attestation statement: I reviewed the patient's lab results. 02/28/25 08:51 02/28/25 08:51 Labs: Lab Results 02/28/25 Range/Units 08:51 WBC 9.5 (4.8-10.8) X10*3/uL RBC 4.63 (4.20-5.50) X10*6/uL Hgb 13.8 (12.0-16.0) g/dl Hct 39.8 (37.0-47.0) % MCV 86.0 (80.0-98.0) fL MCH 29.8 (27.0-33.0) pg MCHC 34.7 (31.0-35.0) g/dl RDW 14.0 (11.0-16.0) % Plt Count 256 (160-400) X10*3/uL MPV 8.4 L (9.4-12.3) fL Immature Gran % (Auto) 0.3 (0.0-0.4) % Neut % (Auto) 51.1 (45-73) % Lymph % (Auto) 40.1 H (20-40) % [place] % (Auto) 7.2 (2-11) % Eos % (Auto) 1.1 (0-4) % Baso % (Auto) 0.2 (0-2) % Lymph # (Auto) 3.8 (1.2-4.9) X10*3/uL [place] # (Auto) 0.7 (0.1-1.2) X10*3/uL Eos # (Auto) 0.1 (0.0-0.4) X10*3/uL Baso # (Auto) 0.0 (0.0-0.2) X10*3/uL Abs Immat Gran (auto) 0.03 (0.00-0.03) X10*3/uL Absolute Neuts (auto) 4.9 (2.0-8.3) x10*3/uL Absolute Nucleated RBC 0.000 (0.0-0.012) X10*3/uL Nucleated RBC % (auto) 0.0 (0.0-0.2) /100WBC Sodium 139 (135-145) mmol/L Potassium 3.8 (3.3-5.1) mmol/L Chloride 108 (96-108) mmol/L Carbon Dioxide 25 (22-29) mmol/L Anion Gap 10 L (12-20) BUN 8 L (9-16) mg/dL Creatinine 0.84 (0.5-1.4) mg/dL Estim Creat Clear Calc 109.1 Estimated GFR > 60 Random Glucose 89 (60-115) mg/dL Calcium 9.0 D (8.4-10.2) mg/dL Magnesium 1.9 (1.6-2.6) mg/dL Total Bilirubin 0.2 (0.0-1.0) mg/dL Direct Bilirubin < 0.2 (0.0-0.5) mg/dL AST 22 (5-31) U/L ALT 18 (0-31) U/L Alkaline Phosphatase 81 (39-117) U/L Troponin I High Sens < 2.7 (<3.5-17.0) ng/L Total Protein 7.7 (6.5-8.0) g/dL Albumin 3.9 (3.5-5.0) g/dL Lipase 16 (8-78) U/L Independent Interpretation I performed an independent interpretation of an: EKG Interpretation: Rate: 87 Rhythm: NSR [place]: left Normal P waves. Normal [place]. Normal QRS complex. ST T wave : nonspecific ST T wave changes ant leads but no MERCEDES qTC: 517 prior studies: more pronounced from priors The study has been interpreted contemporaneously by me. EKG #2 Rate: 80 Rhythm: NSR [place]: left Normal P waves. Normal [place]. Normal QRS complex. ST T wave : no MERCEDES inverted t waves V1-V4 qTC: 433 prior studies:no change The study has been interpreted contemporaneously by me. . External Record Review External record reviewed: Outpatient record Prescription Management I considered prescription management with: Other Discharge Plan Discharge Clinical Impression: Gastritis Qualifiers: Gastritis type: unspecified gastritis Chronicity: acute Gastritis bleeding: without bleeding Qualified Code(s): K29.00 - Acute gastritis without bleeding Patient Disposition: Home, Self-Care Instructions: Gastritis (ED), Diet for Stomach Ulcers and Gastritis (ED) Additional Instructions: your labs are reassuring you do have nonspecific EKG changes please follow up with your doctor for an outpatient ECHO return for any worsening symptoms or concerns stay upright after eating for 45 min, avoid ibuprofen, eat a bland diet Prescriptions: New omeprazole 40 mg capsule,delayed release(DR/EC) 40 mg PO DAILY Qty: 14 0RF sucralfate [Carafate] 100 mg/mL suspension 10 ml PO BID 7 Days Qty: 140 0RF No Action risperidone 1 mg tablet 1 mg PO BEDTIME escitalopram oxalate 10 mg tablet 10 mg PO DAILY methadone [Methadone Intensol] 10 mg/mL Concentrate 160 mg PO DAILY trazodone 100 mg Tablet 100 mg PO BEDTIME 30 Days Qty: 30 0RF cephalexin 500 mg capsule 500 mg PO QID 7 Days Qty: 28 0RF hydroxyzine HCl 25 mg Tablet 25 mg PO Q6H PRN (Reason: Anxiety) 30 Days Qty: 60 0RF nitrofurantoin monohyd/m-cryst [Macrobid] 100 mg capsule 100 mg PO BID Qty: 8 0RF Rx Instructions: must administer with a meal/food Print Language: Spanish
--- NOTE | 2025-02-28 08:36 | ECG_ITS ---
Test Reason : CP Blood Pressure : */* mmHG Vent. Rate : 89 BPM Atrial Rate : 89 BPM P-R Int : 148 ms QRS Dur : 86 ms QT Int : 348 ms P-R-T Axes : 45 -26 -11 degrees QTcB Int : 423 ms Normal sinus rhythm Possible Left atrial enlargement Nonspecific T wave abnormality Abnormal ECG When compared with ECG of 15-Feb-2023 20:04, Nonspecific T wave abnormality now evident in Anterior leads Referred By: Tahira Zuluaga Electronically Signed By: RYLEE VILLALTA
[2025-02-28 08:56] LABS: Hematocrit 39.8 % (37.0-47.0); Hemoglobin 13.8 g/dl (12.0-16.0); Imm Gran Abs Auto 0.03 X10*3/uL (0.00-0.03); Imm Gran Pct Auto 0.3 % (0.0-0.4); Lymphocytes Absolute Auto 3.8 X10*3/uL (1.2-4.9); MANUAL DIFF FLAG NO; Mean Corpuscular HGB Conc 34.7 g/dl (31.0-35.0); Mean Corpuscular Hemoglobin 29.8 pg (27.0-33.0); Mean Corpuscular Volume 86.0 fL (80.0-98.0); NRBC Abs Auto 0.000 X10*3/uL (0.0-0.012); NRBC Pct Auto 0.0 /100WBC (0.0-0.2); Platelet Count 256 X10*3/uL (160-400); Red Blood Count 4.63 X10*6/uL (4.20-5.50); White Blood Count 9.5 X10*3/uL (4.8-10.8)
[2025-02-28 09:15] LABS: Alanine Aminotransferase 18 U/L (0-31); Albumin Level 3.9 g/dL (3.5-5.0); Alkaline Phosphatase 81 U/L (39-117); Anion Gap 10 (12-20); Aspartate Amino Transferase 22 U/L (5-31); Blood Urea Nitrogen 8 mg/dL (9-16); Calcium 9.0 mg/dL (8.4-10.2); Carbon Dioxide 25 mmol/L (22-29); Chloride 108 mmol/L (96-108); Creatinine Clr Calc Pharmacy 109.1; Estimated Glomerular Filt Rate > 60; Magnesium 1.9 mg/dL (1.6-2.6); Potassium 3.8 mmol/L (3.3-5.1); Sodium 139 mmol/L (135-145); Total Protein 7.7 g/dL (6.5-8.0)
[2025-02-28 09:24] LABS: Troponin-I High Sensitivity < 2.7 ng/L (<3.5-17.0)
--- NOTE | 2025-02-28 11:28 | ECG_ITS ---
Test Reason : REPEAT Blood Pressure : */* mmHG Vent. Rate : 87 BPM Atrial Rate : 87 BPM P-R Int : 162 ms QRS Dur : 90 ms QT Int : 430 ms P-R-T Axes : 41 -14 6 degrees QTcB Int : 517 ms Normal sinus rhythm Possible Left atrial enlargement Nonspecific T wave abnormality Abnormal ECG When compared with ECG of 28-Feb-2025 08:40, QT has lengthened Referred By: Katie Bautista Electronically Signed By: RYLEE VILLALTA
[2025-02-28 11:37] LABS: Lipase 16 U/L (8-78)
[2025-02-28] MEDS: Magnesium Hydrox/Alum Hydrox 30 ML ORAL.SUSP 15 ML PO (11:59)
[2025-02-28] MEDS: Lidocaine HCl Viscous 2 % 15 ML SOLUTION MUCOUS MEM (11:59)
--- OUTSIDE RECORDS SUMMARY | 2025-02-28 12:04 | XMS_ITS | Encounter Summary ---
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
[2025-02-28] MEDS: Magnesium Sulfate/H2O 2 GM/50 ML PIGGYBACK IV (12:24)
--- NOTE | 2025-02-28 13:58 | ECG_ITS ---
Test Reason : QT WAVE Blood Pressure : */* mmHG Vent. Rate : 80 BPM Atrial Rate : 80 BPM P-R Int : 156 ms QRS Dur : 94 ms QT Int : 376 ms P-R-T Axes : 48 -21 -12 degrees QTcB Int : 433 ms Normal sinus rhythm Nonspecific T wave abnormality Abnormal ECG When compared with ECG of 28-Feb-2025 11:49, No significant changes seen Referred By: Katie Bautista Electronically Signed By: RYLEE VILLALTA
[2025-02-28 14:43] VITALS: BP 128/80; PULSE 88; RESP 18; TEMP 36.8; O2SAT 97
== END 2025-02-28 14:44 | disposition home or self-care (01) ==
PROVIDERS: Physician Assistant Medical; Emergency Provider Emergency Medicine; PCP Internal Medicine
DX: K29.00 Acute gastritis without bleeding (principal); R12 Heartburn; I10 Essential (primary) hypertension
CPT/HCPCS: 36415; 71046; 80048; 80076; 83690; 83735; 84484; 85025; 93005; 96365; 96366; 99284; J3475

== ENCOUNTER → 2025-02-28 08:36 | Outpatient (BNV) | payer OTHER, SELFPAY | PROVIDERS: Visit Provider Radiology Diagnostic Radiology | DX: R07.9 Chest pain, unspecified (principal) | CPT/HCPCS: 71046 ==

== ENCOUNTER → 2025-02-28 08:36 | Outpatient (BNV) | payer OTHER, SELFPAY | PROVIDERS: Emergency Provider Emergency Medicine; PCP Internal Medicine; Visit Provider Internal Medicine | DX: R94.31 Abnormal electrocardiogram [ECG] [EKG] (principal); R07.9 Chest pain, unspecified; Z13.6 Encounter for screening for cardiovascular disorders | CPT/HCPCS: 93010 ==

== ENCOUNTER 2025-04-06 08:00 | Emergency (ER) | payer OTHER, SELFPAY ==
[2025-04-06 08:07] VITALS: BP 125/69; PULSE 89; RESP 18; TEMP 36.4; O2SAT 94; BMI 39.1
--- NOTE | 2025-04-06 08:14 | ECG_ITS ---
Test Reason : epigastric pain Blood Pressure : */* mmHG Vent. Rate : 87 BPM Atrial Rate : 87 BPM P-R Int : 152 ms QRS Dur : 92 ms QT Int : 410 ms P-R-T Axes : 45 -12 0 degrees QTcB Int : 493 ms Normal sinus rhythm Nonspecific T wave abnormality Abnormal ECG When compared with ECG of 28-Feb-2025 14:07, QT has lengthened Referred By: Generic ED Physician Electronically Signed By: GABRIELLA DELATORRE MD
[2025-04-06 08:41] LABS: MANUAL DIFF FLAG NO
[2025-04-06 08:43] LABS: Hematocrit 38.4 % (37.0-47.0); Hemoglobin 13.5 g/dl (12.0-16.0); Imm Gran Abs Auto 0.05 X10*3/uL (0.00-0.03); Imm Gran Pct Auto 0.6 % (0.0-0.4); Lymphocytes Absolute Auto 3.1 X10*3/uL (1.2-4.9); Mean Corpuscular HGB Conc 35.2 g/dl (31.0-35.0); Mean Corpuscular Hemoglobin 29.7 pg (27.0-33.0); Mean Corpuscular Volume 84.4 fL (80.0-98.0); NRBC Abs Auto 0.000 X10*3/uL (0.0-0.012); NRBC Pct Auto 0.0 /100WBC (0.0-0.2); Platelet Count 236 X10*3/uL (160-400); Red Blood Count 4.55 X10*6/uL (4.20-5.50); White Blood Count 8.2 X10*3/uL (4.8-10.8)
[2025-04-06 08:55] LABS: Alanine Aminotransferase 10 U/L (0-31); Albumin Level 3.8 g/dL (3.5-5.0); Alkaline Phosphatase 69 U/L (39-117); Anion Gap 13 (12-20); Aspartate Amino Transferase 23 U/L (5-31); Blood Urea Nitrogen 8 mg/dL (9-16); Calcium 8.7 mg/dL (8.4-10.2); Carbon Dioxide 22 mmol/L (22-29); Chloride 108 mmol/L (96-108); Creatinine Clr Calc Pharmacy 129.0; Estimated Glomerular Filt Rate > 60; Potassium 3.7 mmol/L (3.3-5.1); Sodium 139 mmol/L (135-145); Total Protein 7.4 g/dL (6.5-8.0)
[2025-04-06 09:03] LABS: Troponin-I High Sensitivity < 2.7 ng/L (<3.5-17.0)
[2025-04-06 09:15] VITALS: BP 103/68; PULSE 86; RESP 18; O2SAT 94
--- NOTE | 2025-04-06 09:20 | PC.NURSE ---
39 F presents to ED with c/o acid reflux that causes throat pain, acid reflux for months since weight gain per patient. A+Ox4, calm, cooperative. RR even and unlabored, speaking in complete sentences. Pt denies any abdominal pain or n/v but has not been eating much or drinking d/t acid reflux getting worse with food. Pt ambulates independently. Pt c/o 9/10 throat pain, no other complaints.
--- NOTE | 2025-04-06 09:27 | ED_ITS ---
HPI - General Adult General Chief complaint: General Medical Stated complaint: Heartburn Time Seen by Provider: 04/06/25 08:48 Source: patient Mode of arrival: ambulatory Limitations: no limitations History of Present Illness HPI narrative: This is a 39 years old the patient with a history of substance abuse including cocaine presented to the ED with a chief complaint of epigastric pain reflux symptoms. She is stating that she was prescribed Prilosec in the past she ran out of the medicine. Denies any fever denies any vomiting Onset (ago): day(s) Location: abdomen (Epigastric) Radiation: non-radiation Severity: mild Quality: burning Pain Consistency: constant Relieving factors: none Exacerbating factors: none Associated symptoms: denies other symptoms Related Data Home Medications ?Medication ?Instructions ?Recorded ?Confirmed escitalopram oxalate 10 mg tablet 10 mg PO DAILY 01/2407/07/23 risperidone 1 mg tablet 1 mg PO BEDTIME 01/24/2307/18 methadone 10 mg/mL oral 160 mg PO DAILY 01/25/2307/18 concentrate (Methadone Intensol) Previous Rx's ?Medication ?Instructions ?Recorded hydroxyzine HCl 25 mg tablet 25 mg PO Q6H PRN Anxiety 30 days 01/15/23 #60 tabs trazodone 100 mg tablet 100 mg PO BEDTIME 30 days #3 0 tabs 01/29/23 nitrofurantoin 100 mg PO BID #8 caps monohydrate/macrocrystals 100 mg capsule (Macrobid) cephalexin 500 mg capsule 500 mg PO QID 7 days #28 cap s 07/25/23 omeprazole 40 mg capsule,delayed 40 mg PO DAILY #14 ca ps 02/28/25 release sucralfate 100 mg/mL oral 10 ml PO BID 7 days #140 mL 02/28/25 suspension (Carafate) omeprazole 40 mg capsule,delayed 40 mg PO DAILY 30 day s #30 caps 04/06/25 release Allergies Allergy/AdvReac Type Severity Reaction Status Date / Time ibuprofen (Advil) AdvReac Unknown rash Verified 04/06/25 08:14 Review of Systems 2 Constitutional: Constitutional: Reports no additional constitutional complaints ENT: Reports system reviewed and no additional complaints, except as documented Gastrointestinal: Gastrointestinal: Reports as per HPI Musculoskeletal: Musculoskeletal: Reports no additional musculoskeletal complaints PMFSH Past Medical History Attestation statement: The following information was validated with the patient. 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 Housing: Apartment Housing Other:: building Do you presently have visiting nurse or other home services: No Alcohol intake: current Alcohol intake frequency: 3 or more drinks per day Patient Tobacco Use Status: Former Tobacco user Smoked in Last 30 Days: No e-Cigarette/Vaping Use: Former Use Second Hand Smoke Exposure: No Use of substances other than those prescribed or required for medical reasons: No Substance Use Type: Crack/Cocaine and Opiates Advance Directives: No Advance Directives Information Provided: No Patient : No service: No Sexual orientation: Straight/Heterosexual Physical Exam ED Exam Exam: Not acute distress comfortable in the stretcher Vital Signs: Vital Signs - 24 hr 04/06/25 08:07 04/06/25 09:15 Temperature 97.6 F Pulse Rate 89 86 Respiratory Rate 18 18 Blood Pressure 125/69 103/68 Pulse Oximetry 94 94 Oxygen Delivery Method Room Air Room Air BMI result Body Mass Index 39.1 Const General: cooperative Nutritional Appearance: average body habitus Orientation/consciousness: patient oriented x3 HENMT Head: Yes normal to inspection Face and sinus: Yes normal facial exam Neck Neck: Yes normal visual inspection Chest Chest palpation & inspection: normal inspection of the chest Resp Effort & Inspection: normal respiratory effort Auscultation: clear to auscultation bilaterally Cardio Jugular venous distension: no JVD Rhythm: regular rhythm GI Inspection: Yes normal to inspection Palpation (GI): Soft to palpation, nontender and no guarding Skin General skin exam: no rashes or lesions noted and elasticity normal Neuro General: patient oriented x3 Course Reevaluation(s) Reevaluation #1: She is feeling better I do not think we need to do CT scan we will discharge home on omeprazole she is comfortable with the plan of care Time: 09:47 Medications Administered Discontinued Medications Generic Name Dose Route Start Last Admin Trade Name Kev PRN Reason Stop Dose Admin Al Hydroxide/Mg Hydroxide 15 ml 04/06/25 09:22 04/06/25 09:42 Magnesium Hydrox/Alum Hydrox 30 Ml Oral.Susp PO 04/06/25 09:23 15 ml ONCE ONE Administration Omeprazole 40 mg 04/06/25 09:21 04/06/25 09:42 Omeprazole 40 Mg Capsule. PO 04/06/25 09:22 40 mg ONCE ONE Administration Medical Decision Making Medical Decision Making [facility] Narrative: Patient is here with the epigastric pain and symptoms of GERD we will do blood work I do not think a CAT scan is indicated Differential Diagnosis Differential Diagnoses: The differential diagnosis associated with the presentation includes Peptic ulcer disease/GERD/gastritis/esophagitis Admission/Observation Consideration of admission/observation: Escalation of care including admission/observation considered Lab Data [facility] Lab Attestation statement: I reviewed the patient's lab results. 04/06/25 08:35 04/06/25 08:35 Labs: Lab Results 04/06/25 Range/Units 08:35 WBC 8.2 (4.8-10.8) X10*3/uL RBC 4.55 (4.20-5.50) X10*6/uL Hgb 13.5 (12.0-16.0) g/dl Hct 38.4 (37.0-47.0) % MCV 84.4 (80.0-98.0) fL MCH 29.7 (27.0-33.0) pg MCHC 35.2 H (31.0-35.0) g/dl RDW 13.9 (11.0-16.0) % Plt Count 236 (160-400) X10*3/uL MPV 8.8 L (9.4-12.3) fL Immature Gran % (Auto) 0.6 H (0.0-0.4) % Neut % (Auto) 52.0 (45-73) % Lymph % (Auto) 37.9 (20-40) % [place] % (Auto) 7.8 (2-11) % Eos % (Auto) 1.3 (0-4) % Baso % (Auto) 0.4 (0-2) % Lymph # (Auto) 3.1 (1.2-4.9) X10*3/uL [place] # (Auto) 0.6 (0.1-1.2) X10*3/uL Eos # (Auto) 0.1 (0.0-0.4) X10*3/uL Baso # (Auto) 0.0 (0.0-0.2) X10*3/uL Abs Immat Gran (auto) 0.05 H (0.00-0.03) X10*3/uL Absolute Neuts (auto) 4.3 (2.0-8.3) x10*3/uL Absolute Nucleated RBC 0.000 (0.0-0.012) X10*3/uL Nucleated RBC % (auto) 0.0 (0.0-0.2) /100WBC Sodium 139 (135-145) mmol/L Potassium 3.7 (3.3-5.1) mmol/L Chloride 108 (96-108) mmol/L Carbon Dioxide 22 (22-29) mmol/L Anion Gap 13 (12-20) BUN 8 L (9-16) mg/dL Creatinine 0.71 (0.5-1.4) mg/dL Estim Creat Clear Calc 129.0 Estimated GFR > 60 Random Glucose 105 (60-115) mg/dL Calcium 8.7 (8.4-10.2) mg/dL Total Bilirubin 0.3 (0.0-1.0) mg/dL AST 23 (5-31) U/L ALT 10 (0-31) U/L Alkaline Phosphatase 69 (39-117) U/L Troponin I High Sens < 2.7 (<3.5-17.0) ng/L Total Protein 7.4 (6.5-8.0) g/dL Albumin 3.8 (3.5-5.0) g/dL Independent Interpretation I performed an independent interpretation of an: EKG (EKG shows sinus rhythm rate [address]-T changes this is a normal EKG) External Record Review External record reviewed: Other (Prior ED record) Tests considered The following testing was considered but not selected: I considered a CAT scan of the abdomen and pelvis however normal white count felt better after Prilosec Prescription Management I considered prescription management with: Other (PPI) Chronic Conditions Patient?s care impacted by: Other (Substance abuse) Social Determinants Substance abuse Discharge Plan Discharge Clinical Impression: GERD (gastroesophageal reflux disease) Qualifiers: Esophagitis presence: esophagitis presence not specified Qualified Code(s): K 21.9 - Gastro-esophageal reflux disease without esophagitis Patient Disposition: Home, Self-Care Instructions: GERD (Gastroesophageal Reflux Disease) (DC) Prescriptions: New omeprazole 40 mg capsule,delayed release(DR/EC) 40 mg PO DAILY 30 Days Qty: 30 0RF No Action risperidone 1 mg tablet 1 mg PO BEDTIME escitalopram oxalate 10 mg tablet 10 mg PO DAILY methadone [Methadone Intensol] 10 mg/mL Concentrate 160 mg PO DAILY trazodone 100 mg Tablet 100 mg PO BEDTIME 30 Days Qty: 30 0RF cephalexin 500 mg capsule 500 mg PO QID 7 Days Qty: 28 0RF hydroxyzine HCl 25 mg Tablet 25 mg PO Q6H PRN (Reason: Anxiety) 30 Days Qty: 60 0RF nitrofurantoin monohyd/m-cryst [Macrobid] 100 mg capsule 100 mg PO BID Qty: 8 0RF Rx Instructions: must administer with a meal/food omeprazole 40 mg capsule,delayed release(DR/EC) 40 mg PO DAILY Qty: 14 0RF sucralfate [Carafate] 100 mg/mL suspension 10 ml PO BID 7 Days Qty: 140 0RF Print Language: [place]
[2025-04-06] MEDS: Magnesium Hydrox/Alum Hydrox 30 ML ORAL.SUSP 15 ML PO (09:42)
[2025-04-06 09:53] VITALS: BP 103/68; PULSE 86; RESP 18; TEMP -17.7; TEMP 0; O2SAT 94
== END 2025-04-06 09:56 | disposition home or self-care (01) ==
PROVIDERS: Emergency Provider Emergency Medicine
DX: K21.9 Gastro-esophageal reflux disease without esophagitis (principal); Z79.899 Other long term (current) drug therapy
CPT/HCPCS: 36415; 80053; 84484; 85025; 93005; 99283; 99284

== ENCOUNTER → 2025-04-06 08:14 | Outpatient (BNV) | payer OTHER, SELFPAY | PROVIDERS: Emergency Provider Emergency Medicine; Visit Provider Internal Medicine Cardiovascular Disease | DX: R94.31 Abnormal electrocardiogram [ECG] [EKG] (principal); R10.13 Epigastric pain | CPT/HCPCS: 93010 ==